=== PATIENT | female | born 1945 | race Caucasian/White ===

== ENCOUNTER 2018-07-18 17:37 | Outpatient (CLI) | payer MEDICARE, OTHER | END 2018-07-18 17:38 | disposition short-term general hospital (02) | LOC: EMS 17:37 | PROVIDERS: ATTEND Surgery | DX: R07.9 Chest pain, unspecified (principal) | CPT/HCPCS: A0425; A0433 ==

== ENCOUNTER 2018-07-28 17:11 | Outpatient (CLI) | payer MEDICARE, OTHER | END 2018-07-28 17:12 | disposition critical access hospital (66) | LOC: EMS 17:11 | PROVIDERS: ATTEND Surgery | DX: R53.1 Weakness (principal); R68.83 Chills (without fever) | CPT/HCPCS: A0425; A0429 ==

== ENCOUNTER 2018-07-28 17:33 | Emergency (ER) | payer MEDICARE, OTHER ==
[2018-07-28] MEDS ORDERED: MORPHINE 10 MG/ML VIAL IVP STA (18:45)
[2018-07-28] MEDS ORDERED: SODIUM CHLORIDE 0.9% 1,000 ML IV ONE ×2 (18:45→22:37)
[2018-07-28] MEDS ORDERED: ONDANSETRON 4 MG/2 ML VIAL IVP STA (18:46)
[2018-07-28 18:58] LABS: BASOPHILS % (AUTO) 0.2 %; HGB - HEMOGLOBIN 13.1 g/dL (12.0-16.0); LYMPHOCYTES # (AUTO) 1.6 10^3/uL (1.5-3.5); LYMPHOCYTES % (AUTO) 17.2 %; MEAN CORPUSCULAR HEMOGLOBIN 32.9 pg (27.0-31.0); MEAN CORPUSCULAR HGB CONC 33.8 g/dL (32.0-36.0); MEAN CORPUSCULAR VOLUME 97.1 fL (81.0-99.0); MEAN PLATELET VOLUME 8.9 fL (7.9-10.8); MONOCYTES # (AUTO) 0.3 10^3/uL (0.0-1.0); MONOCYTES % (AUTO) 3.1 %; NEUTROPHILS # (AUTO) 7.2 10^3/uL (1.5-6.6); NEUTROPHILS % (AUTO) 79.5 %; PLT - PLATELET COUNT 92 10^3/uL (130-450); RED BLOOD COUNT 3.97 10^6/uL (4.20-5.40); RED CELL DISTRIBUTION WIDTH 14.5 % (12.0-15.0)
--- NOTE | 2018-07-28 19:20 | XRAY Report ---
Reason: upper back/chest pain Procedure Date: 07/28/2018 Accession Number: [id number] / [id number] Procedure: XR - Chest 1 View X-Ray CPT Code: 90023 FULL RESULT: EXAM: CHEST RADIOGRAPHY EXAM DATE: 07/28/2018 06:56 PM. CLINICAL HISTORY: Upper back/chest pain. COMPARISON: Chest PA and lateral 10/14/2010. TECHNIQUE: 1 view. FINDINGS: Lungs/Pleura: No focal opacities evident. No pleural effusion. No pneumothorax. Mediastinum: Enlarged heart with atheromatous plaques in the thoracic aorta. Ectatic thoracic aorta. Other: Clips are noted in the right axillary region and chest wall. IMPRESSION: 1. No acute pulmonary process. 2. Cardiac enlargement. RADIA
[2018-07-28 19:30] LABS: PHOSPHORUS 3.5 mg/dL (2.5-4.6)
[2018-07-28 19:35] LABS: ALBUMIN 3.6 g/dL (3.2-5.5); ALBUMIN/GLOBULIN RATIO 1.2 (1.0-2.2); BILIRUBIN,TOTAL 0.9 mg/dL (0.2-1.0); CALCIUM 9.5 mg/dL (8.5-10.3); TOTAL PROTEIN 6.6 g/dL (6.7-8.2)
[2018-07-28] MEDS ORDERED: INSULIN REGULAR HUMAN 100 UNIT/1 ML 10 ML MDV IVP STA ×2 (19:38→20:40)
[2018-07-28] MEDS ORDERED: SODIUM BICARBONATE ABBOJECT 50 MEQ/50 ML SYRINGE IVP STA (19:38)
[2018-07-28] MEDS ORDERED: ALBUTEROL NEB 2.5 MG/3 ML INH STA ×2 (19:40→20:49)
[2018-07-28] MEDS ORDERED: SODIUM POLYSTYRENE SULFONATE 15 GM/60 ML BOTTLE PO STA ×2 (20:01→20:51)
--- NOTE | 2018-07-28 20:39 | ED Physician Documentation ---
PD HPI CHEST PAIN - Stated complaint Stated Complaint: WEAKNESS - Chief complaint Chief Complaint: General - History obtained from History obtained from: Patient, Family - History of Present Illness Timing - onset: Yesterday Timing - duration: Days (2) Timing - details: Gradual onset Quality: Tightness, Pain (Patient presents with a feeling of general malaise and nausea for the last 2 days. She also has persistent chest pain in the upper chest into her shoulders and back that she has had for about a week. She was seen initially for the chest pain but a week ago and was brought by EMS to [facility] and was treated there with evaluation for cardiac and pulmonary causes. She states she had x-rays and lab testing and a stress test and they did not find any cardiopulmonary cause of the pain. She was having nausea while there and was given IV dose of her tacrolimus antirejection medication that was reportedly higher dose than her normal. With that she had an elevation of her creatinine and potassium and was treated for that. She states she was feeling improved with a creatinine down to 1.9 and a potassium of 5.3 at the time of discharge on the . She is still had the persistent pain in the chest and back that did not have a diagnosis. She is now having nausea and general weakness in addition.) Location: Substernal, Left shoulder/arm Radiation: Back Associated symptoms: Nausea, Vomiting, General Weakness. No: Shortness of air, Diaphoresis, Palpitations Recently seen: Emergency Dept, Admitted ([facility] last week for chest pain and subsequent acute renal injury from medication and treated for hyperkalemia and renal insufficiency. No apparent diagnosis was found for the chest pain.) Review of Systems Constitutional: denies: Fever, Chills, Myalgias Nose: denies: Rhinorrhea / runny nose, Congestion Throat: denies: Sore throat Cardiac: reports: Chest pain / pressure. denies: Palpitations, Pedal edema, Calf pain Respiratory: denies: Dyspnea, Cough, Wheezing GI: reports: Nausea, Vomiting. denies: Abdominal Pain, Diarrhea Musculoskeletal: denies: Extremity swelling Neurologic: reports: Generalized weakness. 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, Other - Present Medications Home Medications: Ambulatory Orders Medication Instructions Recorded Confirmed Acetaminophen [Tylenol] 650 mg PO Q4-6H PRN 03/20/13 07/28/18 Aspirin [Aspir 81] 81 mg PO DAILY 03/20/13 07/28/18 Calcium Carbonate [Tums] 500 mg PO TID 03/20/13 07/28/18 Ergocalciferol (Vitamin D2) 5,000 unit PO QAM 03/20/13 07/28/18 [Calciferol] Insulin Aspart (Vial) [NovoLOG] 15 unit SUBQ TID 03/20/13 07/28/18 Insulin Glargine [Lantus] 20 unit SUBQ BID 03/20/13 07/28/18 Lactobacillus Acidophilus 50,000,000 units PO BID 03/20/13 07/28/18 [Acidophilus] Magnesium Oxide [Magnesium] 1,000 mg PO BID 03/20/13 07/28/18 Metoprolol Tartrate [Lopressor] 50 mg PO QAM 03/20/13 07/28/18 Morphine ER [Ms Contin] 15 mg PO Q12H 03/20/13 07/28/18 Multivit with Calcium,Iron,Min 1 each PO DAILY 03/20/13 07/28/18 [Essential Daily] Niacin 1,000 mg PO QPM 03/20/13 07/28/18 Nitrofurantoin Macrocrystal 50 mg PO QAM 03/20/13 07/28/18 [Macrodantin] [place]-3 Acid Ethyl Esters [Lovaza] 1,000 mg PO BID 03/20/13 07/28/18 Ondansetron Oral Soln [Zofran] 8 mg PO BID 03/20/13 07/28/18 Pravastatin Sodium [Pravachol] 20 mg PO QPM 03/20/13 07/28/18 Sertraline [Zoloft] 100 mg PO DAILY 03/20/13 07/28/18 Tacrolimus 2 mg PO BID 03/20/13 07/28/18 predniSONE [Deltasone] 5 mg PO QAM 03/20/13 07/28/18 - Allergies Allergies/Adverse Reactions: Allergies Allergy/AdvReac Type Severity Reaction Status Date / Time methadone [Methadone] Allergy Mild Hives Verified 05/01/13 16:41 propoxyphene Allergy Mild Rash Verified 05/01/13 16:39 verapamil [Verapamil] Allergy Mild Hives Verified 05/01/13 16:41 - Social History Does the pt smoke?: No Smoking Status: Never smoker Does the pt drink ETOH?: No Does the pt have substance abuse?: No - Family History Family history: reports: Non contributory - POLST Patient has POLST: No PD ED PE NORMAL - Vitals Vital signs reviewed: Yes - General General: Alert and oriented X 3 - HEENT HEENT: Pharynx benign. No: Moist mucous membranes - Neck Neck: Supple, no meningeal sign, No adenopathy - Cardiac Cardiac: RRR, No murmur - Respiratory Respiratory: Clear bilaterally - Abdomen Abdomen: Normal bowel sounds, Soft, Non tender, Non distended - Derm Derm: Normal color, Warm and dry - Extremities Extremities: Normal ROM s pain, Other (ulcerative lesion with skin thickening cw callous and ulcer on plantar left 1st MT head area without current infection. ) - Neuro Neuro: Alert and oriented X 3, No motor deficit, Normal speech Eye Opening: Spontaneous Motor: Obeys Commands Verbal: Confused GCS Score: 14 - Psych Psych: Normal mood Results - Vitals Vitals: Vital Signs - 24 hr 07/28/18 07/28/18 07/28/18 17:37 18:28 19:22 Temperature 36.6 C Heart Rate 72 68 72 Respiratory 18 16 15 Rate Blood Pressure 151/71 H 124/63 111/49 L O2 Saturation 97 99 96 07/28/18 07/28/18 07/28/18 19:30 19:40 21:03 Temperature Heart Rate 75 77 72 Respiratory 21 20 18 Rate Blood Pressure 124/66 119/50 L O2 Saturation 100 97 07/28/18 21:43 Temperature 36.7 C Heart Rate 86 Respiratory 18 Rate Blood Pressure 113/57 L O2 Saturation 94 Oxygen O2 Source Room air - EKG (time done) 19:44 Rate: Rate (enter#) (69) Rhythm: NSR Kirk: Normal Intervals: Normal [place] QRS: Normal Ischemia: Normal ST segments. No: ST elevation c/w ischemia, ST depression, Hyperacute T waves - Labs Labs: Laboratory Tests 07/28/18 07/28/18 07/28/18 18:04 18:04 18:04 WBC 9.0 RBC 3.97 L Hgb 13.1 Hct 38.6 MCV 97.1 MCH 32.9 H MCHC 33.8 RDW 14.5 Plt Count 92 L MPV 8.9 Neut # (Auto) 7.2 H Lymph # (Auto) 1.6 [place] # (Auto) 0.3 Eos # (Auto) 0.0 Baso # (Auto) 0.0 Absolute Nucleated RBC 0.00 Nucleated RBC % 0.0 Sodium 131 L Potassium 7.4 H* Chloride 99 L Carbon Dioxide 18 L Anion Gap 14.0 H BUN 66 H Creatinine 3.0 H Estimated GFR (MDRD) 15 L Glucose 382 H Calcium 9.5 Phosphorus 3.5 Magnesium 3.0 H Total Bilirubin 0.9 AST 30 ALT 17 Alkaline Phosphatase 69 Total Creatine Kinase 100 Troponin I Total Protein 6.6 L Albumin 3.6 Globulin 3.0 Albumin/Globulin Ratio 1.2 Lipase 27 07/28/18 07/28/18 18:04 20:08 WBC RBC Hgb Hct MCV MCH MCHC RDW Plt Count MPV Neut # (Auto) Lymph # (Auto) [place] # (Auto) Eos # (Auto) Baso # (Auto) Absolute Nucleated RBC Nucleated RBC % Sodium Potassium 6.6 H* Chloride Carbon Dioxide Anion Gap BUN Creatinine Estimated GFR (MDRD) Glucose Calcium Phosphorus Magnesium Total Bilirubin AST ALT Alkaline Phosphatase Total Creatine Kinase Troponin I 0.05 Total Protein Albumin Globulin Albumin/Globulin Ratio Lipase PD MEDICAL DECISION MAKING - ED course Complexity details: reviewed old records (From [facility].), reviewed results (She has worsening of her creatinine and electrolyte abnormalities compared to discharge from a few days ago. IV fluids as well as treatment for hyperkalemia acutely. [facility] did not have any beds available for transfer. 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 We will check her labs. The EKG appears normal at this time. She had already had evaluation for the chest pain so I will defer much workup for that. More so would be the nausea and weakness feeling over the last couple of days.), d/w patient, d/w application consultant (I talked with the hospitalist at [facility]. He would like us to continue treatment for the hyperkalemia and see that the trend downward continues so that they can choose the appropriate bed placement for her.) - Sepsis Event Vital Signs: Vital Signs - 24 hr 07/28/18 07/28/18 07/28/18 17:37 18:28 19:22 Temperature 36.6 C Heart Rate 72 68 72 Respiratory 18 16 15 Rate Blood Pressure 151/71 H 124/63 111/49 L O2 Saturation 97 99 96 07/28/18 07/28/18 07/28/18 19:30 19:40 21:03 Temperature Heart Rate 75 77 72 Respiratory 21 20 18 Rate Blood Pressure 124/66 119/50 L O2 Saturation 100 97 07/28/18 21:43 Temperature 36.7 C Heart Rate 86 Respiratory 18 Rate Blood Pressure 113/57 L O2 Saturation 94 Oxygen O2 Source Room air Departure - Departure Disposition: 02 Transfer Acute Care Hosp Clinical Impression: Generalized weakness, Acute on chronic renal insufficiency, Electrolyte disturbance Chest pain Qualifiers: Chest pain type: unspecified Qualified Code(s): R07.9 - Chest pain, unspecified Condition: Stable Record reviewed to determine appropriate education?: Yes
[2018-07-28] MEDS ORDERED: CALCIUM GLUCONATE 1,000 MG in SODIUM CHLORIDE 0.9% 50 ML IV STA (20:50)
[2018-07-28 22:34] LABS: CALCIUM 9.3 mg/dL (8.5-10.3); CREATININE 3.1 mg/dL (0.4-1.0)
[2018-07-28] MEDS ORDERED: FUROSEMIDE 20 MG/2 ML VIAL IVP STA (22:47)
[2018-07-29 00:29] VITALS: BP 105/72
== END 2018-07-29 00:45 | disposition short-term general hospital (02) ==
LOC: ED 17:33
DX: E11.22 Type 2 diabetes mellitus with diabetic chronic kidney disease (principal); N18.9 Chronic kidney disease, unspecified; Z94.0 Kidney transplant status; Z79.4 Long term (current) use of insulin; R53.1 Weakness; R07.9 Chest pain, unspecified; E87.5 Hyperkalemia; E87.8 Other disorders of electrolyte and fluid balance, not elsewhere classified; L97.529 Non-pressure chronic ulcer of other part of left foot with unspecified severity
CPT/HCPCS: 36415; 71045; 80048; 80053; 82550; 83690; 83735; 84100; 84132; 84484; 85025; 93005; 94640; 96361; 96365; 96375; 99285; A9270; J1815; J7040

== ENCOUNTER 2019-03-11 14:33 | Outpatient (CLI) | payer MEDICARE, OTHER | END 2019-03-11 14:34 | disposition critical access hospital (66) | LOC: EMS 14:33 | PROVIDERS: ATTEND Surgery | DX: R46.4 Slowness and poor responsiveness (principal); R41.3 Other amnesia | CPT/HCPCS: A0425; A0427 ==

== ENCOUNTER 2019-03-11 14:55 | Observation (INO) | payer MEDICARE, OTHER ==
[2019-03-11] MEDS ORDERED: DEXTROSE 5% 1,000 ML IV ONE (14:57)
--- NOTE | 2019-03-11 15:00 | ED Physician Documentation ---
PD HPI ALTERED MENTAL STATUS - Stated complaint Stated Complaint: HYPOGLYCEMIA - History obtained from History obtained from: Patient, EMS - History of Present Illness Timing - onset: Today (This is a 73 yo woman with H/O ESRD S/P renal xplant. Per EMS, per family, has some memory issues and may have mis-dosed insulin this morning. Usual dose would have been 30 units of lantus and 30 units of humalog. Had breakfast, but no lunch. Daughter found her sweaty and altered on the cough. For EMS FSBS was in the 40s. Feeling better after D50.) Basline status: Confused - Additional information Additional information: She does not remember much from this morning, does not remember self- administering insulin. Per the paramedics she kind of had insulin syringes all over the house and there is a concern that she may have gotten an extra dose or 2. Review of Systems Ten Systems: 10 systems reviewed and negative Constitutional: reports: Reviewed and negative Nose: reports: Reviewed and negative Cardiac: reports: Reviewed and negative Respiratory: reports: Reviewed and negative PD PAST MEDICAL HISTORY - Past Medical History Past Medical History: Yes Respiratory: Sleep apnea Endocrine/Autoimmune: Type 2 diabetes : Renal insuffiency (With kidney transplant about 8 years ago and is followed by [facility] neph[facility].), Other Psych: Depression Musculoskeletal: Chronic back pain - Past Surgical History Past Surgical History: Yes General: Appendectomy, 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, Other - Present Medications Home Medications: Ambulatory Orders Medication Instructions Recorded Confirmed Acetaminophen [Tylenol] 650 mg PO Q4-6H PRN 03/20/13 07/28/18 Aspirin [Aspir 81] 81 mg PO DAILY 03/20/13 07/28/18 Calcium Carbonate [Tums] 500 mg PO TID 03/20/13 07/28/18 Ergocalciferol (Vitamin D2) 5,000 unit PO QAM 03/20/13 07/28/18 [Calciferol] Insulin Aspart (Vial) [NovoLOG] 15 unit SUBQ TID 03/20/13 07/28/18 Insulin Glargine [Lantus] 20 unit SUBQ BID 03/20/13 07/28/18 Lactobacillus Acidophilus 50,000,000 units PO BID 03/20/13 07/28/18 [Acidophilus] Magnesium Oxide [Magnesium] 1,000 mg PO BID 03/20/13 07/28/18 Metoprolol Tartrate [Lopressor] 50 mg PO QAM 03/20/13 07/28/18 Morphine ER [Ms Contin] 15 mg PO Q12H 03/20/13 07/28/18 Multivit with Calcium,Iron,Min 1 each PO DAILY 03/20/13 07/28/18 [Essential Daily] Niacin 1,000 mg PO QPM 03/20/13 07/28/18 Nitrofurantoin Macrocrystal 50 mg PO QAM 03/20/13 07/28/18 [Macrodantin] [place]-3 Acid Ethyl Esters [Lovaza] 1,000 mg PO BID 03/20/13 07/28/18 Ondansetron Oral Soln [Zofran] 8 mg PO BID 03/20/13 07/28/18 Pravastatin Sodium [Pravachol] 20 mg PO QPM 03/20/13 07/28/18 Sertraline [Zoloft] 100 mg PO DAILY 03/20/13 07/28/18 Tacrolimus 2 mg PO BID 03/20/13 07/28/18 predniSONE [Deltasone] 5 mg PO QAM 03/20/13 07/28/18 - Allergies Allergies/Adverse Reactions: Allergies Allergy/AdvReac Type Severity Reaction Status Date / Time methadone [Methadone] Allergy Mild Hives Verified 05/01/13 16:41 propoxyphene Allergy Mild Rash Verified 05/01/13 16:39 verapamil [Verapamil] Allergy Mild Hives Verified 05/01/13 16:41 - Social History Does the pt smoke?: No Smoking Status: Never smoker Does the pt drink ETOH?: No Does the pt have substance abuse?: No - Family History Family history: reports: Non contributory - POLST Patient has POLST: No PD ED PE NORMAL - Vitals Vital signs reviewed: Yes - General General: No acute distress, Well developed/nourished - HEENT HEENT: PERRL, EOMI - Neck Neck: Supple, no meningeal sign, No bony TTP - Cardiac Cardiac: RRR, No murmur - Respiratory Respiratory: No respiratory distress, Clear bilaterally - Abdomen Abdomen: Normal bowel sounds, Soft, Non tender - Back Back: No CVA TTP, No spinal TTP - Extremities Extremities: No edema, No calf tenderness / cord - Neuro Neuro: Alert and oriented X 3 (but poor memory), Normal speech - Psych Psych: Normal mood, Normal affect Results - Vitals Vitals: Vital Signs - 24 hr 03/11/19 03/11/19 14:51 15:00 Temperature 35.6 C L 35.6 C L Heart Rate 76 76 Respiratory 16 16 Rate Blood Pressure 181/86 H 181/86 H O2 Saturation 100 100 Oxygen O2 Source Room air PD MEDICAL DECISION MAKING - ED course ED course: This is a 73-year-old woman who may have taken extra insulin this morning and she was definitely hypoglycemic and altered. Given that she does take long- acting insulin she will need prolonged observation to make sure she does not have recurrent hypoglycemia and I spoke with Dr. Cannon for that at 3:20 PM. Departure - Departure Disposition: ED Place in Observation Clinical Impression: Hypoglycemia Insulin overdose Qualifiers: Encounter type: initial encounter Injury intent: accidental or unintentional Qualified Code(s): T38.3X1A - Poisoning by insulin and oral hypoglycemic [antidiabetic] drugs, accidental (unintentional), initial encounter Condition: Fair
[2019-03-11] MEDS ORDERED: SODIUM CHLORIDE FLUSH 0.9% 10 ML SYRINGE IVP PRN (15:27)
[2019-03-11] MEDS ORDERED: PROCHLORPERAZINE 10 MG/2 ML VIAL IVP PRN (15:29)
[2019-03-11 15:41] LABS: ALBUMIN/GLOBULIN RATIO 0.9 (1.0-2.2); BILIRUBIN,TOTAL 0.7 mg/dL (0.2-1.0); CALCIUM 9.2 mg/dL (8.5-10.3); CREATININE 1.6 mg/dL (0.4-1.0); TOTAL PROTEIN 6.3 g/dL (6.7-8.2)
[2019-03-11] MEDS ORDERED: DEXTROSE 5%-0.9% NACL 1,000 ML IV SCH (16:00)
[2019-03-11 16:09] LABS: BASOPHILS % (AUTO) 0.3 %; EOSINOPHILS % (AUTO) 0.5 %; HGB - HEMOGLOBIN 12.3 g/dL (12.0-16.0); LYMPHOCYTES % (AUTO) 10.8 %; MEAN CORPUSCULAR HEMOGLOBIN 32.5 pg (27.0-31.0); MEAN CORPUSCULAR HGB CONC 33.2 g/dL (32.0-36.0); MEAN CORPUSCULAR VOLUME 98.1 fL (81.0-99.0); MEAN PLATELET VOLUME 7.6 fL (7.9-10.8); MONOCYTES % (AUTO) 8.3 %; NEUTROPHILS % (AUTO) 80.1 %; PLT - PLATELET COUNT 89 10^3/uL (130-450); RED BLOOD COUNT 3.78 10^6/uL (4.20-5.40); RED CELL DISTRIBUTION WIDTH 14.9 % (12.0-15.0); WHITE BLOOD COUNT 6.7 x10^3/uL (4.8-10.8)
[2019-03-11 16:10] LABS: ABNORMAL LYMPHS % (MANUAL) 0 %
[2019-03-11 16:33] LABS: BAND NEUTROPHILS % (MANUAL) 5 %; EOSINOPHILS # (MANUAL) 0.1 10^3/uL (0-0.7); HB2 TOTAL 12.7 g/dL; HEMOGLOBIN A1C 1.11 g/dL; HEMOGLOBIN A1C % 10.1 % (4.6-6.2); LYMPHOCYTES # (MANUAL) 0.8 10^3/uL (1.5-3.5); LYMPHOCYTES % (MANUAL) 11 %; MONOCYTES # (MANUAL) 0.1 10^3/uL (0.0-1.0); NEUTROPHILS # (MANUAL) 5.8 10^3/uL (1.5-6.6); NEUTROPHILS % (MANUAL) 81 %; RBC MORPHOLOGY (MULTIPLE) NORMAL APPEARANCE (NORMAL)
[2019-03-11 16:34] LABS: DIFFERENTIAL COMMENT MANUAL DIFFERENTIAL; PLATELET ESTIMATE, MANUAL DECREASED (<130,000) (NORMAL); PLATELET MORPHOLOGY NORMAL APPEARANCE (NORMAL)
[2019-03-11] MEDS: SODIUM CHLORIDE FLUSH 0.9% 10 ML SYRINGE IVP SCH (16:49)
[2019-03-11] MEDS: INSULIN ASPART 300 UNIT/3 ML PEN SUBQ SCH ×2 (16:49→21:38)
[2019-03-11] MEDS ORDERED: ZINC OXIDE 20% OINT 28.35 GM TUBE TOP PRN (18:40)
[2019-03-11] MEDS ORDERED: oxyCODONE 5 MG TABLET PO PRN (19:37)
[2019-03-11] MEDS ORDERED: PRAVASTATIN 10 MG TABLET PO SCH (21:00)
--- NOTE | 2019-03-11 21:33 | HISTORY & PHYSICAL EXAMINATION ---
DATE OF SERVICE: 03/11/2019 Physician: Irasema Cannon MD HISTORY OF PRESENT ILLNESS: This is a 73-year-old female with a history of obesity, insulin dependent diabetes, stroke 10 years ago, hypothyroidism on replacement, hypertension, kidney replacement recipient approximately 10 years ago. Patient lives alone, with 2 dogs, her 10 years ago. The patient has a set protocol where the daughter calls her every day between 9 a.m. and 10 a.m. This morning apparently the mother sounded confused, and the daughter came to find the mother confused, diaphoretic, and a fingerstick glucose was noted to be 40. She was brought to the emergency room. She received IV and p.o. glucose replacement. She is being monitored in observation to assure that there are no further glucose drops since she is on long-acting insulin treatment. The patient remembers that last night she did not take her evening snack despite taking her usual nighttime insulin and also this morning she ate her breakfast later than normal. The patient states that over the past several months, she gets early satiety and has decreased her overall food intake. She has been on the same insulin doses for many years, states that her A1c runs 6.8-7.2. There has not been a change in her insulin dosing downward because of this very tight control, however. PAST MEDICAL HISTORY: Hypothyroidism, insulin-dependent diabetes, prior kidney failure, and she had a successful kidney transplant approximately 10 years ago, is now on prednisone and tacrolimus, history of hypertension, stroke 10 years ago with mild right-sided weakness and following that she could not drive a car. ALLERGIES 1. METHADONE. 2. PROPOXYPHENE. 3. VERAPAMIL. REVIEW OF SYSTEMS: A comprehensive review of systems was performed and the pertinent positives are listed in the HPI, the rest are negative. FAMILY HISTORY: No inherited diseases. SOCIAL HISTORY: The patient is a nonsmoker, drinks no alcohol. She lives alone, is a of 10 years. PHYSICAL EXAMINATION GENERAL: Obese white female who looks younger than her stated age. She is in no distress. VITAL SIGNS: Blood pressure 168/135, 181/86, pulse 76 in sinus rhythm with PACs, afebrile, actually hypothermic with first temporal temperature of 35.6 centigrade, room air saturation 100%. HEENT: Unremarkable. She has moist oral mucosa. She is well kempt. NECK: Without JVD or carotid bruits. CHEST: Clear. HEART: Heart sounds normal. No murmurs. BREASTS: Large. ABDOMEN: Soft, obese, nontender. Normal bowel sounds. EXTREMITIES: She has 1+ edema of the left ankle. She has no edema on the right. Both have mild venous stasis changes. There is a healing scar of the right lateral ankle. NEUROLOGIC: Grossly intact. LABORATORY DATA: Sodium 139, potassium 3.9, BUN 31, creatinine 1.6. A1c 10.1. AST 57, ALT 38, lipase normal. No INR was done. White blood count 6.7, hemoglobin 12.3 with MCV of 98, platelet count low at 89 with decreased platelets that have normal appearance on manual differential. No chest x-ray was done. No urinalysis was done. IMPRESSION/DIAGNOSES 1. Hypoglycemia. 2. Insulin-dependent diabetes. 3. History of stroke with no residual findings. 4. Leg edema. 5. Hypothyroidism. 6. Kidney transplant recipient. 7. Renal insufficiency, unclear if this is acute or chronic. 8. Hypertension, poorly controlled. 9. Thrombocytopenia. PLAN 1. Place the patient in observation, on telemetry. 2. Administer an IV D5 drip for several hours, discontinue before the morning to assess her morning serum glucoses. 3. Recommend decreasing her long-acting insulin down by at least 2 units subcutaneous because of this hypoglycemic event. 4. Check a urinalysis and a routine chest x-ray. 5. Follow her BMP, renal labs, liver labs, and daily CBC. CODE STATUS: FULL CODE. DEEP VENOUS THROMBOSIS PROPHYLAXIS: SCDs. ATTESTATION: The patient is expected to be discharged or transferred to another facility within 96 hours: Yes. TD: 03/11/2019 20:14 REVISED ON 03/16/2019 adeola DOS correction to 03/11/2019 Orig. signed 03/12/2019@0912 TATI
[2019-03-11] MEDS: TACROLIMUS 0.5 MG CAPSULE PO SCH (21:37)
[2019-03-11] MEDS: METOPROLOL TARTRATE 50 MG TABLET PO SCH (21:37)
[2019-03-11] MEDS: predniSONE 5 MG TABLET PO SCH (21:37)
[2019-03-11] MEDS: CALCIUM CARBONATE CHEW 500 MG TABLET PO SCH (21:37)
[2019-03-11] MEDS: INSULIN GLARGINE 300 UNIT/3 ML PEN SUBQ SCH (21:38)
--- NOTE | 2019-03-11 22:27 | XRAY Report ---
Reason: Hypoglycemia, HTN Hx Procedure Date: 03/11/2019 Accession Number: [id number] / [id number] Procedure: XR - Chest 1 View X-Ray CPT Code: 31140 FULL RESULT: EXAM: CHEST RADIOGRAPHY EXAM DATE: 03/11/2019 08:30 PM. CLINICAL HISTORY: Hypoglycemia, HTN Hx. COMPARISON: CHEST 1 VIEW 07/28/2018 6:46 PM. TECHNIQUE: 1 view. FINDINGS: Lungs/Pleura: No focal opacities evident. No pleural effusion. No pneumothorax. Mediastinum: Within exam limitations, the cardiomediastinal contour is normal. Other: None. IMPRESSION: No acute infiltrates. RADIA
[2019-03-12] MEDS: SODIUM CHLORIDE FLUSH 0.9% 10 ML SYRINGE IVP SCH ×2 (00:17→09:02)
[2019-03-12 05:00] LABS: BILIRUBIN,URINE NEGATIVE (NEGATIVE); GLUCOSE, URINE (UA) NEGATIVE (NEGATIVE); KETONES,URINE (UA) NEGATIVE (NEGATIVE); LEUKOCYTE ESTERASE, URINE NEGATIVE (NEGATIVE); NITRITE,URINE NEGATIVE (NEGATIVE); OCCULT BLOOD,URINE NEGATIVE (NEGATIVE); PROTEIN,URINE 100 mg/dL (NEGATIVE); UROBILINOGEN,URINE 0.2 (NORMAL) E.U./dL (NORMAL)
[2019-03-12 05:03] LABS: CLARITY,URINE CLEAR (CLEAR)
[2019-03-12 05:19] LABS: BACTERIA,URINE None Seen /HPF (None Seen); RBC,URINE None Seen /HPF (0-5); SQUAMOUS EPITHELIAL CELL,UR FEW Squamous (<= Few)
[2019-03-12] MEDS: CALCIUM CARBONATE CHEW 500 MG TABLET PO SCH (05:44)
[2019-03-12 05:51] LABS: BASOPHILS % (AUTO) 0.3 %; EOSINOPHILS # (AUTO) 0.1 10^3/uL (0.0-0.7); EOSINOPHILS % (AUTO) 1.3 %; HGB - HEMOGLOBIN 11.5 g/dL (12.0-16.0); LYMPHOCYTES # (AUTO) 1.3 10^3/uL (1.5-3.5); LYMPHOCYTES % (AUTO) 23.5 %; MEAN CORPUSCULAR HEMOGLOBIN 32.4 pg (27.0-31.0); MEAN CORPUSCULAR HGB CONC 33.2 g/dL (32.0-36.0); MEAN CORPUSCULAR VOLUME 97.5 fL (81.0-99.0); MEAN PLATELET VOLUME 7.6 fL (7.9-10.8); MONOCYTES # (AUTO) 0.4 10^3/uL (0.0-1.0); NEUTROPHILS # (AUTO) 3.9 10^3/uL (1.5-6.6); NEUTROPHILS % (AUTO) 67.9 %; PLT - PLATELET COUNT 85 10^3/uL (130-450); RED BLOOD COUNT 3.55 10^6/uL (4.20-5.40); RED CELL DISTRIBUTION WIDTH 14.6 % (12.0-15.0); WHITE BLOOD COUNT 5.7 x10^3/uL (4.8-10.8)
[2019-03-12 06:00] LABS: ALBUMIN 2.6 g/dL (3.2-5.5); ALBUMIN/GLOBULIN RATIO 0.9 (1.0-2.2); BILIRUBIN,TOTAL 0.6 mg/dL (0.2-1.0); CREATININE 1.4 mg/dL (0.4-1.0); TOTAL PROTEIN 5.6 g/dL (6.7-8.2)
[2019-03-12] MEDS ORDERED: LEVOTHYROXINE 25 MCG TABLET PO SCH (07:00)
[2019-03-12] MEDS ORDERED: PANTOPRAZOLE 40 MG TABLET PO SCH (07:00)
[2019-03-12 07:41] VITALS: BP 144/90
[2019-03-12] MEDS: METOPROLOL TARTRATE 50 MG TABLET PO SCH (08:54)
[2019-03-12] MEDS: predniSONE 5 MG TABLET PO SCH (08:55)
[2019-03-12] MEDS: TACROLIMUS 0.5 MG CAPSULE PO SCH (08:56)
[2019-03-12] MEDS: INSULIN GLARGINE 300 UNIT/3 ML PEN SUBQ SCH (08:58)
[2019-03-12] MEDS ORDERED: MULTIVITAMIN W/MINERALS TABLET PO SCH (09:00)
[2019-03-12] MEDS ORDERED: FUROSEMIDE 20 MG TABLET PO SCH (09:00)
[2019-03-12] MEDS ORDERED: ASPIRIN EC 81 MG TABLET PO SCH (09:00)
[2019-03-12] MEDS ORDERED: POLYETHYLENE GLYCOL 3350 17 GM PACKET PO SCH (09:00)
[2019-03-12] MEDS ORDERED: SERTRALINE 50 MG TABLET PO SCH (09:00)
--- NOTE | 2019-03-12 09:02 | Discharge Plan ---
Discharge Plan Disposition: 01 Home, Self Care Condition: Stable Diet: Diabetic Activity Restrictions: Activity as Tolerated Shower Restrictions: No Instruction Topics: Hypoglycemia, Diabetes Low Blood Sugar Ch, Hypoglycemia Steps Additional Instructions or Follow Up instructions: You were treated for hypoglycemia. After reviewing your Insulin doses and your diet, I advise that your Insulin dose be decreased by 2 Units each time, to prevent another hypoglycemic attack. Please see your PCP for further management of your diet and Insulin management. Resume your other pre-hospital medications. If you have new or worsening symptoms, call your doctor or come to the ER. No Smoking: If you smoke, Please STOP! Call for help. Follow-up with: Ever Freeman MD [Primary Care Provider] -
[2019-03-12] MEDS ORDERED: CHOLECALCIFEROL 5,000 UNIT CAPSULE PO SCH (10:00)
[2019-03-12] MEDS: INSULIN ASPART 300 UNIT/3 ML PEN SUBQ SCH (10:03)
--- NOTE | 2019-03-12 15:24 | DISCHARGE SUMMARY ---
"Discharge Summary Admit Date: 03/11/19 Discharge Date: 03/12/19 Discharging Provider: Dr Irasema Cannon Primary Care Provider: Dr Ever Freeman Code Status: Attempt Resuscitation Condition at Discharge: Stable Discharge Disposition: 01 Home, Self Care - DIAGNOSES Admission Diagnoses: 1) Hypoglycemia 2) IDDM 3) Hx of CVA 4) Hypothyroidism 5) Kidney transplant recipient 7) HTN 8) SHAYY Discharge Diagnoses with Status of Each Condition: 1. Hypoglycemia - resolved and she was advised to decrease Insulin doses. She should also consider getting a Life Alert. 2. Insulin-dependent diabetes - A1c was 10.1 Further diet and medication adjustments advised to be done with PCP. 3. History of stroke - no residual findings. 4. Leg edema - minimal and stable 5. Hypothyroidism - the patient was kept on her same thyroid replacement dose. 6. Kidney transplant recipient - Her Tacrolimus was continued while here. 7. Renal insufficiency - her admission creat was 1.6. Previously it has been 3, here. At discharge it was 1.4, improved after 12 hours of iv hydration, presumably. 8. HTN - she was kept on her same BP meds whole here. 9. Thrombocytopenia - etiology unclear and needs outpatient evaluation. - HPI History of Present Illness: This is a 73-year-old white female with a history of hypertension, IDDM, prior stroke, hypothyroidism, hypertension, kidney transplant on immunosuppressant. Patient forgot to eat her evening snack the previous night, and ate her breakfast late, but took her usual Insulin doses, and the daughter called her at the daily 9 AM phone call and noticed that she was confused. The daughter came over and found her confused, diaphoretic and hypoglycemic with a fingerstick glucose of 40. In the ER she was treated with p.o. and IV glucose, and placed in Observation for assuring there were no more hypoglycemic events - CONSULTS | PROCEDURES Consultations: None - HOSPITAL COURSE Hospital Course: She was kept on IV D5 NS for approximately 9 hours. He was also on a carb controlled diet and had sliding scale insulin coverage. Her usual doses of long- acting insulin were decreased by 2 units and her morning glucoses ran in the 1 80-200 range. Her other medications were continued while she was here. She was discharged with recommendations to decrease her long-acting insulin by 2 units, and have further adjustments in her diabetic management by her PCP as well. - ALLERGIES Allergies/Adverse Reactions: Allergies Allergy/AdvReac Type Severity Reaction Status Date / Time methadone [Methadone] Allergy Mild Hives Verified 03/11/19 15:38 propoxyphene Allergy Mild Rash Verified 03/11/19 15:38 verapamil [Verapamil] Allergy Mild Hives Verified 03/11/19 15:38 - MEDICATIONS Home Medications: Ambulatory Orders Medication Instructions Recorded Confirmed Acetaminophen [Tylenol] 650 mg PO Q4-6H PRN 03/20/13 03/11/19 Aspirin [Aspir 81] 81 mg PO DAILY 03/20/13 03/11/19 Calcium Carbonate [Tums (Calcium 500 mg PO TID 03/20/13 03/11/19 Carbonate 500mg)] Insulin Glargine [Lantus] 30 unit SUBQ BID 03/20/13 03/11/19 Metoprolol Tartrate [Lopressor] 50 mg PO QAM 03/20/13 03/11/19 Multivit with Calcium,Iron,Min 1 each PO DAILY 03/20/13 03/11/19 [Essential Daily] [place]-3 Acid Ethyl Esters [Lovaza] 1,000 mg PO BID 03/20/13 03/11/19 Pravastatin Sodium [Pravachol] 20 mg PO QPM 03/20/13 03/11/19 Sertraline [Zoloft] 100 mg PO DAILY 03/20/13 03/11/19 Tacrolimus 2 mg PO BID 03/20/13 03/11/19 predniSONE [Deltasone] 5 mg PO QAM 03/20/13 03/11/19 Furosemide 20 mg PO DAILY 03/11/19 03/11/19 Levothyroxine [Synthroid] 25 mcg PO QDAC 03/11/19 03/11/19 Oxycodone HCl 10 mg PO BID PRN 03/11/19 03/11/19 Cholecalciferol [Vitamin D3] 5,000 unit PO DAILY 03/12/19 03/12/19 Insulin Aspart (Vial) [NovoLOG 13 unit SUBQ TID #0 03/12/19 03/11/19 (VIAL FOR ED USE)] - PHYSICAL EXAM AT DISCHARGE General Appearance: positive: No acute distress, Alert Eyes Bilateral: positive: Normal inspection ENT: positive: ENT inspection nml Neck: positive: Nml inspection, No JVD Respiratory: positive: No respiratory distress, Breath sounds nml Cardiovascular: positive: Regular rate & rhythm, No murmur Abdomen: positive: Non-tender, Other (Obese with a pannus) Extremities: positive: Other (ankle edema) Neurologic/Psychiatric: positive: Oriented x3 - LABS Result Diagrams: 03/12/19 05:31 03/12/19 05:31 - DIAGNOSTIC IMAGING Diagnostic Imaging Results: Final report reviewed Diagnostic Imaging Results Comments: CXR - unremarkable. - FOLLOW UP Follow Up: Advised to see Dr. Freeman in follow-up within a week. - TIME SPENT Time Spent in Discharge (Minutes): 30"
== END 2019-03-12 11:30 | disposition home or self-care (01) ==
LOC: ED 14:55 → MS2 15:27 → OBS 22:42
PROVIDERS: ADMIT Internal Medicine; ATTEND Internal Medicine
DX: E11.649 Type 2 diabetes mellitus with hypoglycemia without coma (principal); T38.3X5A Adverse effect of insulin and oral hypoglycemic [antidiabetic] drugs, initial encounter; Y92.009 Unspecified place in unspecified non-institutional (private) residence as the place of occurrence of the external cause; E03.9 Hypothyroidism, unspecified; I10 Essential (primary) hypertension; N17.9 Acute kidney failure, unspecified; R60.0 Localized edema; N28.9 Disorder of kidney and ureter, unspecified; D69.6 Thrombocytopenia, unspecified; E66.9 Obesity, unspecified; Z79.4 Long term (current) use of insulin; Z79.899 Other long term (current) drug therapy; Z94.0 Kidney transplant status; Z86.73 Personal history of transient ischemic attack (TIA), and cerebral infarction without residual deficits; Z79.82 Long term (current) use of aspirin; Z68.34 Body mass index [BMI] 34.0-34.9, adult; Z79.52 Long term (current) use of systemic steroids
CPT/HCPCS: 36415; 71045; 80053; 81001; 83036; 83690; 85025; 96361; 96365; 96366; 99283; 99284; A9270; G0378; J1815; J7512; 87086; 96360

== ENCOUNTER 2019-11-01 12:55 | Emergency (ER) | payer MEDICARE, OTHER, MEDICAID ==
[2019-11-01 13:07] VITALS: BP 137/67
--- NOTE | 2019-11-01 14:15 | ED Physician Documentation ---
History of Present Illness - Stated complaint Stated Complaint: HEAD WOUND - Chief complaint Chief Complaint: Wound - History obtained from History obtained from: Patient - History of Present Illness Timing: Today Pain level max: 0 Pain level now: 0 - Additonal information Additional information: 74-year-old female had a Mohs surgery for skin cancer off of her scalp. She states that she developed an abscess in the surgical site. This was incised and drained yesterday in the dermatology clinic. She states that she received a call from the expansion envelope maker hand today telling her to come to the emergency department and have the wound packed. There is no further drainage. She is on antibiotics at home. No fevers. 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: Hysterectomy, Other - Present Medications Home Medications: Ambulatory Orders Medication Instructions Recorded Confirmed Acetaminophen [Tylenol] 650 mg PO Q4-6H PRN 03/20/13 03/11/19 Aspirin [Aspir 81] 81 mg PO DAILY 03/20/13 03/11/19 Calcium Carbonate [Tums (Calcium 500 mg PO TID 03/20/13 03/11/19 Carbonate 500mg)] Insulin Glargine [Lantus] 30 unit SUBQ BID 03/20/13 03/11/19 Metoprolol Tartrate [Lopressor] 50 mg PO QAM 03/20/13 03/11/19 Multivit with Calcium,Iron,Min 1 each PO DAILY 03/20/13 03/11/19 [Essential Daily] [place]-3 Acid Ethyl Esters [Lovaza] 1,000 mg PO BID 03/20/13 03/11/19 Pravastatin Sodium [Pravachol] 20 mg PO QPM 03/20/13 03/11/19 Sertraline [Zoloft] 100 mg PO DAILY 03/20/13 03/11/19 Tacrolimus 2 mg PO BID 03/20/13 03/11/19 predniSONE [Deltasone] 5 mg PO QAM 03/20/13 03/11/19 Furosemide 20 mg PO DAILY 03/11/19 03/11/19 Levothyroxine [Synthroid] 25 mcg PO QDAC 03/11/19 03/11/19 Oxycodone HCl 10 mg PO BID PRN 03/11/19 03/11/19 Cholecalciferol [Vitamin D3] 5,000 unit PO DAILY 03/12/19 03/12/19 Insulin Aspart (Vial) [NovoLOG 13 unit SUBQ TID #0 03/12/19 03/11/19 (VIAL FOR ED USE)] - Allergies Allergies/Adverse Reactions: Allergies Allergy/AdvReac Type Severity Reaction Status Date / Time methadone [Methadone] Allergy Mild Hives Verified 11/01/19 13:07 propoxyphene Allergy Mild Rash Verified 11/01/19 13:07 verapamil [Verapamil] Allergy Mild Hives Verified 11/01/19 13:07 - Social History Does the pt smoke?: No Smoking Status: Never smoker Does the pt drink ETOH?: No Does the pt have substance abuse?: No - POLST Patient has POLST: No PD ED PE NORMAL - Vitals Vital signs reviewed: Yes - General General: Alert and oriented X 3, No acute distress, Well developed/nourished - HEENT HEENT: PERRL, Moist mucous membranes, Other (Well-healing surgical incision wound to the anterior scalp. No drainage. Minimal fluctuance.) - Neck Neck: Supple, no meningeal sign - Cardiac Cardiac: RRR, Strong equal pulses - Respiratory Respiratory: No respiratory distress, Clear bilaterally - Derm Derm: Warm and dry - Neuro Neuro: Alert and oriented X 3 - Psych Psych: Normal mood, Normal affect Results - Vitals Vitals: Vital Signs - 24 hr 11/01/19 13:03 Temperature 36.4 C L Heart Rate 62 Respiratory 18 Rate Blood Pressure 137/67 H O2 Saturation 98 Oxygen O2 Source Room air PD MEDICAL DECISION MAKING - ED course Complexity details: re-evaluated patient, considered differential, d/w patient, d/w marketing sales consultant (bibi) ED course: Discussed the case with dermatology on-call at the [facility] skin clinic. They will follow-up with her on Sunday. We will not re-incise the incision today. She will continue the antibiotics at home. Patient counseled regarding signs and symptoms for which I believe and urgent re-evaluation would be necessary. Patient with good understanding of and agreement to plan and is comfortable going home at this time This document was made in part using voice recognition software. While efforts are made to proofread this document, sound alike and grammatical errors may occur. Departure - Departure Disposition: Home, Self Care Clinical Impression: Encounter for wound re-check Condition: Good Instructions: ED Wound Care Follow-Up: Ashanti Fernando MD [Physician No Access] - Comments: Continue the antibiotics at home. Follow-up with dermatology on Sunday for repeat evaluation. If it reaccumulates during that time, they will re-incise and drain the area. Return if you worsen. Discharge Date/Time: 11/01/19 14:26
== END 2019-11-01 14:26 | disposition home or self-care (01) ==
LOC: ED 12:55
DX: Z48.01 Encounter for change or removal of surgical wound dressing (principal); G30.9 Alzheimer's disease, unspecified; F02.80 Dementia in other diseases classified elsewhere, unspecified severity, without behavioral disturbance, psychotic disturbance, mood disturbance, and anxiety; E11.9 Type 2 diabetes mellitus without complications; Z79.4 Long term (current) use of insulin
CPT/HCPCS: 99281; 99282

== ENCOUNTER 2020-01-13 19:14 | Outpatient (CLI) | payer MEDICARE, OTHER, MEDICAID | END 2020-01-13 19:15 | disposition critical access hospital (66) | LOC: EMS 19:14 | PROVIDERS: ATTEND Surgery | DX: R53.1 Weakness (principal); R06.9 Unspecified abnormalities of breathing; R05 Cough | CPT/HCPCS: A0425; A0429 ==

== ENCOUNTER 2020-01-13 19:33 | Inpatient (IN) | payer MEDICARE, OTHER, MEDICAID ==
[2020-01-13 21:13] LABS: BASOPHILS % (AUTO) 0.2 %; EOSINOPHILS % (AUTO) 0.3 %; HGB - HEMOGLOBIN 12.8 g/dL (12.0-16.0); LYMPHOCYTES # (AUTO) 0.7 10^3/uL (1.5-3.5); LYMPHOCYTES % (AUTO) 12.4 %; MEAN CORPUSCULAR HEMOGLOBIN 30.8 pg (27.0-31.0); MEAN CORPUSCULAR VOLUME 93.5 fL (81.0-99.0); MEAN PLATELET VOLUME 9.6 fL (7.9-10.8); MONOCYTES # (AUTO) 0.5 10^3/uL (0.0-1.0); MONOCYTES % (AUTO) 8.8 %; NEUTROPHILS # (AUTO) 4.4 10^3/uL (1.5-6.6); NEUTROPHILS % (AUTO) 76.1 %; PLT - PLATELET COUNT 111 10^3/uL (130-450); RED BLOOD COUNT 4.15 10^6/uL (4.20-5.40); RED CELL DISTRIBUTION WIDTH 15.4 % (12.0-15.0); WHITE BLOOD COUNT 5.8 x10^3/uL (4.8-10.8)
--- NOTE | 2020-01-13 21:15 | ED Physician Documentation ---
History of Present Illness - Stated complaint Stated Complaint: FLU LIKE SYMPTOMS - Chief complaint Chief Complaint: Abd Pain - History obtained from History obtained from: Patient (74-year-old female comes in today however via EMS per daughter's request for diarrhea. The patient lives at home by herself with her 2 large dogs blackbrun retriever & a mastiff, her daughter comes and checks on her daily, takes her out to lunch & does grocery shopping with her etc. The daughter came over to the house today and found the patient to be incontinent of liquid stool for the second day in a row, and the pt was unaware that she was soiled. The patient was placed on Augmentin approximately 3 - 4 days ago for an upper respiratory infection and a urinary tract infection. This was done by her PCP. The daughter states that the patient is unable to care for herself at home anymore given her current situation with her progressively worsening Alzheimer's disease. EMS was called and proceeded to bring her to the ER.) Review of Systems Constitutional: reports: Fatigue. denies: Fever, Chills Nose: reports: Reviewed and negative Throat: reports: Reviewed and negative Cardiac: reports: Reviewed and negative Respiratory: reports: Cough, Wheezing GI: reports: Diarrhea (Per EMS report, patient verbalized that she was unaware that she had diarrhea.). 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 : Renal insuffiency, Other (Right kidney transplant approximately 10 years ago) Psych: Depression Musculoskeletal: Chronic back pain Derm: None - Past Surgical History Past Surgical History: Yes General: Appendectomy, Other (Right kidney transplant.) /EXECUTIVE SECRETARY SOCIAL WELFARE: Hysterectomy, Other - Present Medications Home Medications: Ambulatory Orders Medication Instructions Recorded Confirmed Acetaminophen [Tylenol] 650 mg PO Q4-6H PRN 03/20/13 01/13/20 Aspirin [Aspir 81] 81 mg PO DAILY 03/20/13 01/13/20 Calcium Carbonate [Tums (Calcium 500 mg PO TID 03/20/13 01/13/20 Carbonate 500mg)] Insulin Glargine [Lantus] 30 unit SUBQ BID 03/20/13 01/13/20 Metoprolol Tartrate [Lopressor] 25 mg PO QAM 03/20/13 01/13/20 Multivit with Calcium,Iron,Min 1 each PO DAILY 03/20/13 01/13/20 [Essential Daily] [place]-3 Acid Ethyl Esters [Lovaza] 1,000 mg PO BID 03/20/13 03/11/19 Pravastatin Sodium [Pravachol] 20 mg PO QPM 03/20/13 01/13/20 Sertraline [Zoloft] 50 mg PO DAILY 03/20/13 01/13/20 Tacrolimus 2 mg PO BID 03/20/13 01/13/20 predniSONE [Deltasone] 5 mg PO QAM 03/20/13 01/13/20 Furosemide 20 mg PO BID 03/11/19 01/13/20 Levothyroxine [Synthroid] 25 mcg PO QDAC 03/11/19 01/13/20 Oxycodone HCl 10 mg PO BID PRN 03/11/19 01/13/20 Cholecalciferol [Vitamin D3] 5,000 unit PO DAILY 03/12/19 01/13/20 Insulin Aspart (Vial) [NovoLOG 13 unit SUBQ TID #0 03/12/19 01/13/20 (VIAL FOR ED USE)] - Allergies Allergies/Adverse Reactions: Allergies Allergy/AdvReac Type Severity Reaction Status Date / Time methadone [Methadone] Allergy Mild Hives Verified 11/01/19 13:07 propoxyphene Allergy Mild Rash Verified 11/01/19 13:07 verapamil [Verapamil] Allergy Mild Hives Verified 11/01/19 13:07 - Social History Does the pt smoke?: No Smoking Status: Never smoker Does the pt drink ETOH?: No Does the pt have substance abuse?: No - POLST Patient has POLST: No PD ED PE NORMAL - General General: No acute distress, Well developed/nourished - HEENT HEENT: Atraumatic, PERRL, Ears normal, Moist mucous membranes, Pharynx benign - Neck Neck: No adenopathy - Cardiac Cardiac: RRR, No murmur - Respiratory Respiratory: No respiratory distress - Abdomen Abdomen: Normal bowel sounds, Soft, Non tender, Non distended - Back Back: No CVA TTP - Psych Psych: Normal mood, Normal affect PD ED PE EXPANDED - Respiratory Respiratory: Rhonchi, Decreased breath sounds, Right lower lobe, Left lower lobe - Derm Derm: Bruising (Noted to the right back region flank area.Patient denies any knowledge of any trauma to this region.) Results - Vitals Vitals: Vital Signs - 24 hr 01/13/20 01/13/20 01/13/20 19:36 21:55 22:26 Temperature 36.4 C L 36.7 C Heart Rate 65 78 Respiratory 16 16 Rate Blood Pressure 110/46 L 97/65 O2 Saturation 100 98 Oxygen O2 Source Room air - Labs Labs: Laboratory Tests 01/13/20 01/13/20 21:08 21:08 WBC 5.8 RBC 4.15 L Hgb 12.8 Hct 38.8 MCV 93.5 MCH 30.8 MCHC 33.0 RDW 15.4 H Plt Count 111 L MPV 9.6 Neut # (Auto) 4.4 Lymph # (Auto) 0.[address] [place] # (Auto) 0.5 Eos # (Auto) 0.0 Baso # (Auto) 0.0 Absolute Nucleated RBC 0.00 Nucleated RBC % 0.0 Sodium 129 L Potassium 3.8 Chloride 94 L Carbon Dioxide 17 L Anion Gap 18.0 H BUN 107 H* Creatinine 3.3 H Estimated GFR (MDRD) 14 L Glucose 353 H Calcium 7.9 L PD MEDICAL DECISION MAKING - ED course Complexity details: reviewed old records, reviewed results, re-evaluated patient, considered differential - Consults Consults: Request sales consultant residential manager admit patient (Dr Jaimes hospitalist), Other (Dr Dunbar, line out worker is comfortable withe the pt being admitted at [facility] for rehydration and lab recheck in the a.m.) Departure - Departure Disposition: ED Place in Observation Clinical Impression: Acute kidney failure Qualifiers: Acute renal failure type: unspecified Qualified Code(s): N17.9 - Acute kidney failure, unspecified Condition: Fair Comments: I spoke with both the patient and the patient's daughter regarding patient's condition, and that she was going to be admitted to the hospital for observation over the night with rehydration and lab work done in the morning. Both the patient and the daughter verbalized understanding. Dr. Isidro was contacted and has agreed to accept the patient for admit.
[2020-01-13 21:53] LABS: CALCIUM 7.9 mg/dL (8.5-10.3); CREATININE 3.3 mg/dL (0.4-1.0)
--- NOTE | 2020-01-13 22:01 | XRAY Report ---
Reason: cough, congestion, fever, coarse lung sounds Procedure Date: 01/13/2020 Accession Number: [id number] / [id number] Procedure: XR - Chest 2 View X-Ray CPT Code: 81593 Final Report FULL RESULT: EXAM: CHEST RADIOGRAPHY EXAM DATE: 01/13/2020 09:50 PM. CLINICAL HISTORY: Cough, congestion, fever, coarse lung sounds. COMPARISON: CHEST 1 VIEW 03/11/2019 8:17 PM CHEST 1 VIEW 07/28/2018 6:46 PM. TECHNIQUE: 2 views. FINDINGS: Lungs/Pleura: New linear and small focal opacities in the right midlung and bilateral lower lungs. No dense consolidation. No large effusion or pneumothorax. No pulmonary edema. Mediastinum: Heart and mediastinal contours are unremarkable. Other: Right axillary surgical clips. IMPRESSION: New scattered linear and small focal opacities in the right mid and bilateral lower lungs, nonspecific, could reflect atelectasis or atypical infection. RADIA
[2020-01-13] MEDS ORDERED: SODIUM CHLORIDE FLUSH 0.9% 10 ML SYRINGE IVP PRN (22:48)
[2020-01-13] MEDS ORDERED: LACTATED RINGERS 1,000 ML IV ONE (22:53)
--- NOTE | 2020-01-13 23:10 | HISTORY & PHYSICAL EXAMINATION ---
Chief Complaint - Chief Complaint Chief Complaint: Diarrhea History of Present Illness - Admitted From Admitted From:: Home - History Obtained From Records Reviewed: Yes History obtained from: Patient, ER Provider, EMR Exam Limitations: Patient is confused and poor historian - History of Present Illness HPI Comment/Other: This is a 74-year-old female with a past medical history significant for insulin-dependent diabetes, hypothyroidism, hypertension, renal transplant, chronic kidney disease, obstructive sleep apnea on CPAP who presents today from home after her daughter found her to be incontinent of stool for the past couple of days and that the patient was also soiled without her realizing. Patient reports that she was diagnosed with a urinary tract infection about 3 to 4 days ago and she was started on Augmentin. She states that she had been doing well prior to this but over the past couple days, she has felt weak, tired and noticed that she has been having diarrhea. She states it is liquid in nature and she has been having a few bowel movements each day. It does not wake her up at night. She has not noticed any blood. She has no associated abdominal pain, nausea, vomiting. She reports no prior history of stool infections to her knowledge. She has no chest pain, dyspnea, fevers, chills, dysuria, urgency. She states she has had a little bit of a nonproductive cough. She was reportedly on Augmentin for an upper respiratory tract infection as well as the UTI. She reports she normally drinks 8 to 12 glasses of water a day but these past couple of days she has had decreased oral intake and she has not been feeling well. She does report feeling thirsty. She does have a history of a kidney transplant and prior records state this happened approximately 10 years ago but the patient tells me it may have been a few years ago. She does not know why she had a transplant. She currently believes it is the month of December. She is unable to tell me the year. She initially thought she was at the hospital in [place]. Her daughter told the ER provider that the patient has had difficulty taking care of herself at home given her worsening Alzheimer's. In the emergency department, she is found to be afebrile with temperature of 36.4 C. Her heart rate was 65. Her blood pressure was 110/46. She was not tachypneic and saturating well on room air. Labs reveal a sodium of 129, chloride of 94, bicarbonate of 17, and elevated anion gap at 18. Her BUN was elevated at 107 and her creatinine at 3.3, her baseline is usually around 1.5. Glucose was also elevated at 353. Given her acute renal failure and dehydration, medicine was consulted for admission. I did ask the emergency room provider to speak with her tankerman (Dr. Garvin) given her history of renal transplant. Provider spoke with the on-call tankerman (Dr. Dunbar) who felt it is appropriate for the patient to be admitted here. They recommended checking a Prograf level in the morning before resuming. Of note, I did discuss goals of care with the patient and she would like to be a full code. History - Past Medical History Cardiovascular: reports: Hypertension Respiratory: reports: Sleep apnea, CPAP use Neuro: reports: Alzhiemer's Endocrine/Autoimmune: reports: Type 2 diabetes GI: reports: None [employer]: reports: None : reports: Renal insuffiency, Other (Right kidney transplant approximately 10 years ago) Psych: reports: Depression Musculoskeletal: reports: Chronic back pain Derm: reports: None MRSA Hx?: No - Past Surgical History General: reports: Appendectomy, Other (Right kidney transplant.) /[employer]: reports: Hysterectomy, Other - Family & Social History Family History Comment/Other: She reports her mother had diabetes but she is not sure what she from home. She does not recall any other family history. Living arrangement: At home Living Situation: Alone Social History Notes: She states that she lives at home alone with her two dogs. She has a daughter, Christina who lives nearby. The patient denies ever smoking and denies alcohol use. She states she is independent with ADLs and ambulates on her own. - Substance History Use: Uses substance without health or social issues: NONE - POLST Patient has POLST: No Meds/Allgy - Home Medications Home Medications: Ambulatory Orders Medication Instructions Recorded Confirmed Acetaminophen [Tylenol] 650 mg PO Q4-6H PRN 03/20/13 01/13/20 Aspirin [Aspir 81] 81 mg PO DAILY 03/20/13 01/13/20 Calcium Carbonate [Tums (Calcium 500 mg PO TID 03/20/13 01/13/20 Carbonate 500mg)] Insulin Glargine [Lantus] 30 unit SUBQ BID 03/20/13 01/13/20 Metoprolol Tartrate [Lopressor] 25 mg PO QAM 03/20/13 01/13/20 Multivit with Calcium,Iron,Min 1 each PO DAILY 03/20/13 01/13/20 [Essential Daily] [place]-3 Acid Ethyl Esters [Lovaza] 1,000 mg PO BID 03/20/13 03/11/19 Pravastatin Sodium [Pravachol] 20 mg PO QPM 03/20/13 01/13/20 Sertraline [Zoloft] 50 mg PO DAILY 03/20/13 01/13/20 Tacrolimus 2 mg PO BID 03/20/13 01/13/20 predniSONE [Deltasone] 5 mg PO QAM 03/20/13 01/13/20 Furosemide 20 mg PO BID 03/11/19 01/13/20 Levothyroxine [Synthroid] 25 mcg PO QDAC 03/11/19 01/13/20 Oxycodone HCl 10 mg PO BID PRN 03/11/19 01/13/20 Cholecalciferol [Vitamin D3] 5,000 unit PO DAILY 03/12/19 01/13/20 Insulin Aspart (Vial) [NovoLOG 13 unit SUBQ TID #0 03/12/19 01/13/20 (VIAL FOR ED USE)] - Allergies Allergies/Adverse Reactions: Allergies Allergy/AdvReac Type Severity Reaction Status Date / Time methadone [Methadone] Allergy Mild Hives Verified 01/13/20 23:21 propoxyphene Allergy Mild Rash Verified 01/13/20 23:21 verapamil [Verapamil] Allergy Mild Hives Verified 01/13/20 23:21 Review of Systems - Constitutional Constitutional: reports: Fatigue, Malaise, Poor appetite. denies: Fever, Chills - Eyes Eyes: denies: Blurred vision - Ears, Nose & Throat Ears, Nose & Throat: reports: Sore throat. denies: Nasal congestion - Cardiovascular Cariovascular: denies: Chest pain, Exertional dyspnea, Decr. exercise tolerance - Respiratory Respiratory: reports: Cough. denies: Sputum production, SOB at rest, SOB with exertion - Gastrointestinal Gastrointestinal: reports: Diarrhea, Change in bowel habits. denies: Abdominal pain, Black stools, Bloody stools, Nausea, Vomiting - Genitourinary Genitourinary: denies: Dysuria, Frequency, Hematuria - Musculoskeletal Musculoskeletal: denies: Muscle pain - Integumentary Integumentary: denies: Rash - Neurological Neurological: reports: Memory problems. denies: General weakness, Focal weakness - All Other Systems All Other Systems: reports: Reviewed and negative Prior Level of Functionality: He lives alone and ambulates without any devices. Daughter has been concerned about progression of her dementia. Exam - Vital Signs Reviewed Vital Signs: Yes Vital Signs: Vital Signs x48h Temp Pulse Resp BP Pulse Ox 01/13/20 22:26 78 16 97/65 98 01/13/20 21:55 36.7 C 01/13/20 19:36 36.4 C L 65 16 110/46 L 100 - Physical Exam General Appearance: positive: No acute distress, Alert, Mild distress Eyes Bilateral: positive: Conjunctivae nml ENT: positive: Pharynx nml, Dry mucous membranes. negative: No signs of dehydration Neck: positive: Nml inspection Respiratory: positive: No respiratory distress, Rhonchi (Faint rhonchi noted in the right lower lobe). negative: Wheezes, Rales Cardiovascular: positive: Regular rate & rhythm, No murmur. negative: Tachycardia, Bradycardia, Systolic murmur, Friction rub Abdomen: positive: Non-tender, Nml bowel sounds, No distention. negative: Tenderness, Guarding, Rebound Skin: positive: No rash, Warm, Dry Extremities: positive: Full ROM, No pedal edema, Other (There is a fistula in the right upper extremity with a thrill present.) Neurologic/Psychiatric: positive: Disoriented to place, Disoriented to time, Other (She has no focal motor deficits and is able to move all 4 extremities. She initially believes she was at the hospital in [place]. She is unable to tell me the year and she believes it is December. She does know her date of and is able to name all 4 of her daughters.). negative: Oriented x3, Disoriented to person Conclusion/Plan - Problem List (1) Acute renal failure superimposed on stage 3 chronic kidney disease Conclusion/Plan: He presents with an elevated BUN of 107 and a creatinine of 3.3. Her baseline creatinine is approximately 1.5. Suspect this is likely prerenal injury given her dehydration from diarrhea and poor oral intake. We will hydrate her with IV lactated Ringer's. We will give her 1 L bolus now and start her on maintenance 800 cc an hour. We will obtain a urinalysis. At this point in time, there is not appear to be an indication for emergent dialysis. (2) Altered mental status Conclusion/Plan: She is altered at this time as she is disoriented to location, month, year. This may be progression of underlying dementia but given her elevated BUN, this could be altered mental status from uremia. She has no focal motor deficits on exam so will not be obtaining a CT of the head. I am hopeful that her mental status will improve with IV hydration as her renal function improves. Qualifiers: Altered mental status type: disorientation Qualified Code(s): R41.0 - Disorientation, unspecified (3) Diarrhea Conclusion/Plan: He does have risk factors for C. difficile including recent antibiotic use. The diarrhea may potentially as well be from her tacrolimus and she has had elevated levels in the past per chart review. At this time, we will hydrate her with IV fluids and check a C. difficile PCR. We will hold her tacrolimus for the time being and check a level now as well as in the morning. Diet as tolerated. Qualifiers: Diarrhea type: presumed infectious Qualified Code(s): R19.7 - Diarrhea, unspecified (4) Hyponatremia Conclusion/Plan: Sodium is still low at 133 when corrected for hyperglycemia. Suspect this is hypovolemic hyponatremia given she appears dry on exam. This should improve with IV hydration. (5) Insulin dependent diabetes mellitus Conclusion/Plan: She is on Lantus 30 units twice daily along with NovoLog 13 units with meals. She is currently hyperglycemic with a blood glucose of 353 although she did not take her insulin today. We will give her 30 units of her Lantus now and put her on her home dose of Lantus and NovoLog. Carb controlled diet. We will have the housekeeping cleaner evaluate her. (6) History of renal transplant Conclusion/Plan: Is a history of renal transplant over 10 years ago. She follows with Dr. Garvin. We will continue her home prednisone but hold her tacrolimus and to check a level today and in the morning. We will need to discuss with her tankerman again tomorrow when he would be appropriate to restart her tacrolimus given her acute kidney injury. (7) STEVEN on CPAP Conclusion/Plan: Stable. Continue CPAP therapy while hospitalized. (8) Hypertension Conclusion/Plan: She is on Lasix and metoprolol at home. Her blood pressure is currently within normal limits. We will hold her home diuretic given she is hypovolemic. We will continue to hydrate her with IV fluids. - Lab Results Lab results reviewed: Yes Derik Bones: 01/13/20 21:08 01/13/20 21:08 - Diagnostic Imaging Results Diagnostic Imaging Results: positive: Final report reviewed Core Measures - Anticipated LOS I expect patient to be DC'd or transferred within 96 hours.: Yes - Issues Hospital Issues and Management Plan: 74-year-old female presents with diarrhea and found to have acute renal failure. Will be admitted for IV hydration and infectious work-up including C. difficile - DVT/VTE - Prophylaxis VTE/DVT Device ordered at admit?: Yes VTE/DVT Prophylaxis med ordered at admit?: Yes
[2020-01-14] MEDS: LACTATED RINGERS 1,000 ML IV SCH ×3 (00:36→20:17)
[2020-01-14] MEDS: INSULIN GLARGINE 300 UNIT/3 ML PEN SUBQ SCH ×2 (01:31→08:10)
[2020-01-14] MEDS: MIN OIL/DIMETHICON/COCONUT OIL 92 GM TUBE TOP PRN ×4 (01:37→14:47)
[2020-01-14] MEDS: SODIUM CHLORIDE FLUSH 0.9% 10 ML SYRINGE IVP SCH ×3 (01:38→17:45)
[2020-01-14] MEDS: ACETAMINOPHEN 325 MG TABLET PO PRN ×2 (04:59→13:58)
[2020-01-14] MEDS: CALCIUM CARBONATE CHEW 500 MG TABLET PO SCH ×3 (05:04→21:12)
[2020-01-14 05:52] LABS: BASOPHILS % (AUTO) 0.2 %; EOSINOPHILS % (AUTO) 0.7 %; HGB - HEMOGLOBIN 11.6 g/dL (12.0-16.0); LYMPHOCYTES % (AUTO) 18.8 %; MEAN CORPUSCULAR HEMOGLOBIN 29.7 pg (27.0-31.0); MEAN CORPUSCULAR HGB CONC 32.3 g/dL (32.0-36.0); MEAN CORPUSCULAR VOLUME 92.1 fL (81.0-99.0); MEAN PLATELET VOLUME 9.8 fL (7.9-10.8); MONOCYTES # (AUTO) 0.7 10^3/uL (0.0-1.0); MONOCYTES % (AUTO) 12.8 %; NEUTROPHILS # (AUTO) 3.6 10^3/uL (1.5-6.6); NEUTROPHILS % (AUTO) 65.7 %; PLT - PLATELET COUNT 90 10^3/uL (130-450); RED CELL DISTRIBUTION WIDTH 15.1 % (12.0-15.0); WHITE BLOOD COUNT 5.5 x10^3/uL (4.8-10.8)
[2020-01-14 06:24] LABS: BILIRUBIN,DIRECT 0.1 mg/dL (0.1-0.5); BILIRUBIN,TOTAL 0.7 mg/dL (0.2-1.0); CREATININE 2.6 mg/dL (0.4-1.0); MAGNESIUM 2.3 mg/dL (1.7-2.8); PHOSPHORUS 5.7 mg/dL (2.5-4.6); TOTAL PROTEIN 5.8 g/dL (6.7-8.2)
[2020-01-14 06:25] LABS: ALBUMIN 2.4 g/dL (3.2-5.5)
[2020-01-14] MEDS: LEVOTHYROXINE 25 MCG TABLET PO SCH (06:48)
[2020-01-14] MEDS: CHOLECALCIFEROL 5,000 UNIT CAPSULE PO SCH (08:08)
[2020-01-14] MEDS: ASPIRIN CHEW 81 MG TABLET PO SCH ×2 (08:08→10:30)
[2020-01-14] MEDS: predniSONE 5 MG TABLET PO SCH (08:08)
[2020-01-14] MEDS: INSULIN ASPART 300 UNIT/3 ML PEN SUBQ SCH ×6 (08:09→20:35)
[2020-01-14] MEDS: SERTRALINE 50 MG TABLET PO SCH (08:11)
[2020-01-14] MEDS: HEPARIN 5,000 UNIT/ML VIAL SUBQ SCH ×3 (08:11→20:35)
[2020-01-14] MEDS ORDERED: oxyCODONE 5 MG TABLET PO PRN (08:21)
[2020-01-14] MEDS ORDERED: ASPIRIN EC 81 MG TABLET PO SCH (09:00)
[2020-01-14] MEDS ORDERED: CHOLECALCIFEROL 5,000 UNIT CAPSULE PO SCH (09:00)
[2020-01-14] MEDS ORDERED: SERTRALINE 50 MG TABLET PO SCH (09:00)
[2020-01-14] MEDS ORDERED: METOPROLOL TARTRATE 50 MG TABLET PO SCH (09:00)
--- NOTE | 2020-01-14 11:40 | PHARMACY PROGRESS NOTE ---
- Best Possible Medication History Admit Date and Time: 01/13/20 2248 Processed by: Nursing Medication History completed: Yes As the person ultimately responsible for medication therapy, providers are able to order a medication from an existing home medication list in [facility] via the "Reconcile Routine" prior to Confirmation of that medication by youth accommodation support worker. Such practice is discouraged except when the physician, in their clinical judgment, deems that a medical need exists for a medication without regard to previous use.
[2020-01-14 11:52] LABS: BILIRUBIN,URINE NEGATIVE (NEGATIVE); GLUCOSE, URINE (UA) NEGATIVE (NEGATIVE); KETONES,URINE (UA) NEGATIVE (NEGATIVE); LEUKOCYTE ESTERASE, URINE SMALL (NEGATIVE); NITRITE,URINE NEGATIVE (NEGATIVE); OCCULT BLOOD,URINE NEGATIVE (NEGATIVE); PROTEIN,URINE NEGATIVE (NEGATIVE); UROBILINOGEN,URINE 0.2 (NORMAL) E.U./dL (NORMAL)
[2020-01-14 11:58] LABS: BACTERIA,URINE Few /HPF (None Seen); CLARITY,URINE HAZY (CLEAR); RBC,URINE 0-5 /HPF (0-5); SQUAMOUS EPITHELIAL CELL,UR MOD Squamous (<= Few); YEAST,URINE PRESENT
[2020-01-14] MEDS: MULTIVITAMIN W/MINERALS TABLET PO SCH (12:22)
[2020-01-14] MEDS ORDERED: CALCIUM CARBONATE CHEW 500 MG TABLET PO SCH (14:00)
--- NOTE | 2020-01-14 14:46 | PROVIDER PROGRESS NOTE ---
Subjective - Prog Note Date Prog Note Date: 01/14/20 - Subjective Pt reports feeling: Improved Subjective: pt is alert and oriented to person, location but not time. she denies pain, fever, cough, shortness of breath. C.diff result is negative. Current Medications - Current Medications Current Medications: Active Medications Acetaminophen (Tylenol) 650 mg PO Q4HR PRN PRN Reason: Pain 1 to 4 Last Admin: 01/14/20 13:58 Dose: 650 mg Aspirin ([place]ir Aspirin) 81 mg PO DAILY [facility] Last Admin: 01/14/20 10:30 Dose: 81 mg Calcium Carbonate/Glycine (Tums) 500 mg PO TID [facility] Last Admin: 01/14/20 14:03 Dose: 500 mg Cholecalciferol (Vitamin D3) 5,000 unit PO DAILY [facility] Last Admin: 01/14/20 08:08 Dose: 5,000 unit Heparin Sodium (Porcine) () 5,000 unit SUBQ BID [facility] Last Admin: 01/14/20 10:28 Dose: 5,000 unit Lactated Ringer's (Lr) 1,000 mls @ 100 mls/hr IV .Q10H [facility] [place] Last Admin: 01/14/20 10:30 Dose: 100 mls/hr Insulin Aspart (Novolog) 1 - 5 unit SUBQ 0800,1200,1700,2100 [facility]; Protocol Last Admin: 01/14/20 11:35 Dose: 1 unit Insulin Aspart (Novolog) 13 unit SUBQ TIDWM [facility] Last Admin: 01/14/20 11:35 Dose: 13 unit Insulin Glargine (Lantus Solostar) 30 unit SUBQ BID [facility] Last Admin: 01/14/20 08:10 Dose: 30 unit Levothyroxine Sodium (Synthroid) 25 mcg PO QDAC [facility] Last Admin: 01/14/20 06:48 Dose: 25 mcg Metoprolol Tartrate (Lopressor) 25 mg PO QAM [facility] Mineral Oil (Cavilon) 1 applic TOP PRN PRN PRN Reason: Skin Care Last Admin: 01/14/20 14:47 Dose: 1 applic Multivitamins/Minerals (Theragran M) 1 tab PO 1200 [facility] Last Admin: 01/14/20 12:22 Dose: 1 tab Oxycodone HCl (Roxicodone) 10 mg PO BID PRN PRN Reason: PAIN Pravastatin Sodium (Pravachol) 20 mg PO QPM [facility] [place] Prednisone (Deltasone) 5 mg PO DAILYWM [facility] [place] Last Admin: 01/14/20 08:08 Dose: 5 mg Sertraline HCl (Zoloft) 50 mg PO DAILY [facility] [place] Last Admin: 01/14/20 08:11 Dose: 50 mg Sodium Chloride (Normal Saline Flush 0.9%) 10 ml IVP PRN PRN PRN Reason: NEEDED PER PROVIDER ORDERS Sodium Chloride (Normal Saline Flush 0.9%) 10 ml IVP 0100,0900,1700 [facility] [place] Last Admin: 01/14/20 08:11 Dose: Not Given Acetaminophen [Tylenol] 650 mg PO Q4-6H PRN 03/20/13 Aspirin [Aspir 81] 81 mg PO DAILY 03/20/13 Calcium Carbonate [Tums (Calcium Carbonate 500mg)] 500 mg PO TID 03/20/13 Insulin Glargine [Lantus] 30 unit SUBQ BID 03/20/13 Multivit with Calcium,Iron,Min [Essential Daily] 1 each PO DAILY 03/20/13 Pravastatin Sodium [Pravachol] 20 mg PO QPM 03/20/13 Sertraline [Zoloft] 50 mg PO DAILY 03/20/13 Tacrolimus 2 mg PO BID 03/20/13 predniSONE [Deltasone] 5 mg PO QAM 03/20/13 Furosemide 20 mg PO BID 03/11/19 Levothyroxine [Synthroid] 25 mcg PO QDAC 03/11/19 Oxycodone HCl 10 mg PO BID PRN 03/11/19 Cholecalciferol [Vitamin D3] 5,000 unit PO DAILY 03/12/19 Metoprolol Succinate 25 mg PO QPM 01/14/20 Objective - Vital Signs/Intake & Output Vital Signs: Vital Signs x48h Temp Pulse Resp BP Pulse Ox 01/14/20 12:57 36.4 C L 66 20 138/89 H 100 01/14/20 07:28 37 C 68 24 115/59 L 97 Intake & Output: Intake & Output 01/11/20 01/12/20 01/13/20 01/14/20 23:59 23:59 23:59 23:59 Intake Total 3170 Output Total 20 Balance 3150 - Objective General Appearance: positive: No acute distress, Alert. negative: Lethargic Eyes Bilateral: positive: Normal inspection, PERRL, No lid inflammation ENT: positive: ENT inspection nml, Pharynx nml, No signs of dehydration. negative: Purulent nasal drainage Neck: positive: Nml inspection, Thyroid nml, No JVD, Trachea midline. negative: Thyromegaly, Lymphadenopathy (R), Lymphadenopathy (L), Stiff neck, Tracheal deviation Respiratory: positive: Chest non-tender, No respiratory distress, Breath sounds nml. negative: Wheezes, Rales, Rhonchi Cardiovascular: positive: Regular rate & rhythm, No murmur, No gallop. negative: Irregularly irregular, Extrasystoles, Tachycardia, Bradycardia, JVD present, Systolic murmur, Diastolic murmur Peripheral Pulses: 2+ Radial (R), 2+ Radial (L) Abdomen: positive: Non-tender, No organomegaly, Nml bowel sounds, No distention. negative: Tenderness, Guarding, Rebound Back: positive: Nml inspection. negative: CVA tenderness (R), CVA tenderness (L) Skin: positive: Color nml, No rash, Warm, Dry. negative: Cyanosis, Diaphoresis, Pallor Extremities: positive: Non-tender, Nml appearance. negative: Calf tenderness, Jordana's sign/cords Neurologic/Psychiatric: positive: Motor nml, Sensation nml. negative: Weakness, Sensory loss, Facial droop, Slurred/abnml speech, Depressed mood/affect - Lab Results Fish Bones: 01/14/20 05:45 01/14/20 05:45 Other Labs: Lab Results x24hrs 01/14/20 01/14/20 01/14/20 Range/Units 11:30 05:45 05:45 WBC 5.5 (4.8-10.8) x10^3/uL RBC 3.90 L (4.20-5.40) 10^6/uL Hgb 11.6 L (12.0-16.0) g/dL Hct 35.9 L (37.0-47.0) % MCV 92.1 (81.0-99.0) fL MCH 29.7 (27.0-31.0) pg MCHC 32.3 (32.0-36.0) g/dL RDW 15.1 H (12.0-15.0) % Plt Count 90 L (130-450) 10^3/uL MPV 9.8 (7.9-10.8) fL Neut # (Auto) 3.6 (1.5-6.6) 10^3/uL Lymph # (Auto) 1.0 L (1.5-3.5) 10^3/uL [place] # (Auto) 0.7 (0.0-1.0) 10^3/uL Eos # (Auto) 0.0 (0.0-0.7) 10^3/uL Baso # (Auto) 0.0 (0.0-0.1) 10^3/uL Absolute Nucleated RBC 0.00 x10^3/uL Nucleated RBC % 0.0 /100WBC Sodium 132 L (135-145) mmol/L Potassium 3.6 (3.5-5.0) mmol/L Chloride 101 (101-111) mmol/L Carbon Dioxide 16 L (21-32) mmol/L Anion Gap 15.0 H (6-13) BUN 97 H* (6-20) mg/dL Creatinine 2.6 H (0.4-1.0) mg/dL Estimated GFR (MDRD) 18 L (>89) Glucose 289 H (70-100) mg/dL Lactic Acid (0.5-2.2) mmol/L Calcium 8.0 L (8.5-10.3) mg/dL Phosphorus 5.7 H (2.5-4.6) mg/dL Magnesium 2.3 (1.7-2.8) mg/dL Total Bilirubin 0.7 (0.2-1.0) mg/dL Direct Bilirubin 0.1 (0.1-0.5) mg/dL AST 12 (10-42) IU/L ALT 10 (10-60) IU/L Alkaline Phosphatase 48 (42-121) IU/L Total Protein 5.8 L (6.7-8.2) g/dL Albumin 2.4 L (3.2-5.5) g/dL Globulin 3.4 (2.1-4.2) g/dL Urine Color YELLOW Urine Clarity HAZY (CLEAR) Urine pH 6.0 (5.0-7.5) PH Ur Specific [place] 1.010 (1.002-1.030) Urine Protein NEGATIVE (NEGATIVE) mg/dL Urine Glucose (UA) NEGATIVE (NEGATIVE) mg/dL Urine Ketones NEGATIVE (NEGATIVE) mg/dL Urine Occult Blood NEGATIVE (NEGATIVE) Urine Nitrite NEGATIVE (NEGATIVE) Urine Bilirubin NEGATIVE (NEGATIVE) Urine Urobilinogen 0.2 (NORMAL) (NORMAL) E.U./dL Ur Leukocyte Esterase SMALL H (NEGATIVE) Urine RBC 0-5 (0-5) /HPF Urine WBC 11-25 H (0-5) /HPF Ur Squamous Epith Cells MOD Squamous H (<= Few) Urine Bacteria Few (None Seen) /HPF Urine Yeast PRESENT Ur Microscopic Review Cancelled Urine Culture Comments Cancelled 01/13/20 01/13/20 01/13/20 Range/Units 23:35 21:08 21:08 WBC 5.8 (4.8-10.8) x10^3/uL RBC 4.15 L (4.20-5.40) 10^6/uL Hgb 12.8 (12.0-16.0) g/dL Hct 38.8 (37.0-47.0) % MCV 93.5 (81.0-99.0) fL MCH 30.8 (27.0-31.0) pg MCHC 33.0 (32.0-36.0) g/dL RDW 15.4 H (12.0-15.0) % Plt Count 111 L (130-450) 10^3/uL MPV 9.6 (7.9-10.8) fL Neut # (Auto) 4.4 (1.5-6.6) 10^3/uL Lymph # (Auto) 0.7 L (1.5-3.5) 10^3/uL [place] # (Auto) 0.5 (0.0-1.0) 10^3/uL Eos # (Auto) 0.0 (0.0-0.7) 10^3/uL Baso # (Auto) 0.0 (0.0-0.1) 10^3/uL Absolute Nucleated RBC 0.00 x10^3/uL Nucleated RBC % 0.0 /100WBC Sodium 129 L (135-145) mmol/L Potassium 3.8 (3.5-5.0) mmol/L Chloride 94 L (101-111) mmol/L Carbon Dioxide 17 L (21-32) mmol/L Anion Gap 18.0 H (6-13) BUN 107 H* (6-20) mg/dL Creatinine 3.3 H (0.4-1.0) mg/dL Estimated GFR (MDRD) 14 L (>89) Glucose 353 H (70-100) mg/dL Lactic Acid 1.2 (0.5-2.2) mmol/L Calcium 7.9 L (8.5-10.3) mg/dL Phosphorus (2.5-4.6) mg/dL Magnesium (1.7-2.8) mg/dL Total Bilirubin (0.2-1.0) mg/dL Direct Bilirubin (0.1-0.5) mg/dL AST (10-42) IU/L ALT (10-60) IU/L Alkaline Phosphatase (42-121) IU/L Total Protein (6.7-8.2) g/dL Albumin (3.2-5.5) g/dL Globulin (2.1-4.2) g/dL Urine Color Urine Clarity (CLEAR) Urine pH (5.0-7.5) PH Ur Specific [place] (1.002-1.030) Urine Protein (NEGATIVE) mg/dL Urine Glucose (UA) (NEGATIVE) mg/dL Urine Ketones (NEGATIVE) mg/dL Urine Occult Blood (NEGATIVE) Urine Nitrite (NEGATIVE) Urine Bilirubin (NEGATIVE) Urine Urobilinogen (NORMAL) E.U./dL Ur Leukocyte Esterase (NEGATIVE) Urine RBC (0-5) /HPF Urine WBC (0-5) /HPF Ur Squamous Epith Cells (<= Few) Urine Bacteria (None Seen) /HPF Urine Yeast Ur Microscopic Review Urine Culture Comments ABX Reporting Has patient been on IV antibiotics over the past 48 hours?: No Assessment/Plan - Problem List (1) Acute renal failure superimposed on stage 3 chronic kidney disease Impression: 01/13 improved. pt's BUN is 97 from 107 on yesterday, creatinine is 2.6 from 3.3 on yesterday. pt has good appetite today continue IVF, and lab monitor (2) Altered mental status Conclusion/Plan: 01/13 improved. pt is alert and oriented two. pt did not present focal neurological deficit continue oriented to pt by staff, continue neuro check (3) Diarrhea Conclusion/Plan: 01/13 improved. C.diff test is negative. continue IVF, continue skin protection in anus area by staff. (4) Hyponatremia Conclusion/Plan: 01/13 improved. Na is 132 today from 129, continue IVF of NS, as renal function improved. (5) Insulin dependent diabetes mellitus Conclusion/Plan: 01/13 improved. glucose is 143 at morning. continue SS, lantus, ACHS, hypoglycemia protocol (6) History of renal transplant Conclusion/Plan: 01/13 continue Prednisone. tacrolimus concentration in serum is still pending in test, will resume after test (7) STEVEN on CPAP Conclusion/Plan: Stable. Continue CPAP therapy while hospitalized. (8) Hypertension stable, will resume home after reconcile
[2020-01-14] MEDS: PRAVASTATIN 40 MG TABLET PO SCH (20:36)
[2020-01-14] MEDS ORDERED: INSULIN GLARGINE 300 UNIT/3 ML PEN SUBQ SCH (21:00)
[2020-01-15] MEDS: SODIUM CHLORIDE FLUSH 0.9% 10 ML SYRINGE IVP SCH ×3 (01:25→17:47)
[2020-01-15] MEDS: ACETAMINOPHEN 325 MG TABLET PO PRN (05:13)
[2020-01-15 05:22] LABS: BASOPHILS % (AUTO) 0.2 %; EOSINOPHILS % (AUTO) 0.9 %; HGB - HEMOGLOBIN 11.2 g/dL (12.0-16.0); LYMPHOCYTES % (AUTO) 21.2 %; MEAN CORPUSCULAR HEMOGLOBIN 29.9 pg (27.0-31.0); MEAN CORPUSCULAR HGB CONC 32.4 g/dL (32.0-36.0); MEAN CORPUSCULAR VOLUME 92.5 fL (81.0-99.0); MEAN PLATELET VOLUME 9.5 fL (7.9-10.8); MONOCYTES # (AUTO) 0.5 10^3/uL (0.0-1.0); MONOCYTES % (AUTO) 10.1 %; NEUTROPHILS # (AUTO) 3.1 10^3/uL (1.5-6.6); NEUTROPHILS % (AUTO) 65.9 %; PLT - PLATELET COUNT 74 10^3/uL (130-450); RED BLOOD COUNT 3.74 10^6/uL (4.20-5.40); RED CELL DISTRIBUTION WIDTH 15.2 % (12.0-15.0); WHITE BLOOD COUNT 4.7 x10^3/uL (4.8-10.8)
[2020-01-15 05:37] LABS: CALCIUM 8.1 mg/dL (8.5-10.3); CREATININE 1.7 mg/dL (0.4-1.0); MAGNESIUM 2.2 mg/dL (1.7-2.8); PHOSPHORUS 3.8 mg/dL (2.5-4.6)
[2020-01-15] MEDS: LEVOTHYROXINE 25 MCG TABLET PO SCH (06:12)
[2020-01-15] MEDS: LACTATED RINGERS 1,000 ML IV SCH ×3 (06:12→20:47)
[2020-01-15] MEDS: CALCIUM CARBONATE CHEW 500 MG TABLET PO SCH ×3 (06:12→22:04)
[2020-01-15] MEDS ORDERED: LOPERAMIDE 2 MG CAPSULE PO PRN (07:00)
[2020-01-15] MEDS: SERTRALINE 50 MG TABLET PO SCH (08:06)
[2020-01-15] MEDS: METOPROLOL SUCCINATE 25 MG TABLET PO SCH (08:06)
[2020-01-15] MEDS: ASPIRIN CHEW 81 MG TABLET PO SCH (08:07)
[2020-01-15] MEDS: CHOLECALCIFEROL 5,000 UNIT CAPSULE PO SCH (08:07)
[2020-01-15] MEDS: predniSONE 5 MG TABLET PO SCH (08:07)
[2020-01-15] MEDS: HEPARIN 5,000 UNIT/ML VIAL SUBQ SCH ×2 (08:11→20:28)
[2020-01-15] MEDS: INSULIN ASPART 300 UNIT/3 ML PEN SUBQ SCH ×4 (08:21→20:53)
[2020-01-15] MEDS: INSULIN GLARGINE 300 UNIT/3 ML PEN SUBQ SCH ×2 (08:23→20:54)
--- NOTE | 2020-01-15 11:30 | PROVIDER PROGRESS NOTE ---
Subjective - Prog Note Date Prog Note Date: 01/15/20 - Subjective Pt reports feeling: Improved Subjective: pt report she feel better, and she is comfortably sitting at the edge of the bed. she ate most of her breakfast. she denies fever, chill, cough, shortness of breath, chest pain. I called pt's associate professor of medicine, DR. Feliz to discuss if resume pt's home meds Tacrolimus. recommended we can resume her tacrolimus now and advise pt followup him on next week or next Sunday. Current Medications - Current Medications Current Medications: Active Medications Acetaminophen (Tylenol) 650 mg PO Q4HR PRN PRN Reason: Pain 1 to 4 Last Admin: 01/15/20 05:13 Dose: 650 mg Aspirin (St Nasir Aspirin) 81 mg PO DAILY [facility] Last Admin: 01/15/20 08:07 Dose: 81 mg Calcium Carbonate/Glycine (Tums) 500 mg PO TID [facility] Last Admin: 01/15/20 06:12 Dose: 500 mg Cholecalciferol (Vitamin D3) 5,000 unit PO DAILY [facility] Last Admin: 01/15/20 08:07 Dose: 5,000 unit Heparin Sodium (Porcine) () 5,000 unit SUBQ BID [facility] Last Admin: 01/15/20 08:11 Dose: 5,000 unit Lactated Ringer's (Lr) 1,000 mls @ 100 mls/hr IV .Q10H [facility] Stop: 01/16/20 07:59 Insulin Aspart (Novolog) 1 - 9 unit SUBQ 0800,1200,1700,2100 [facility]; Protocol Last Admin: 01/15/20 08:21 Dose: 1 unit Insulin Glargine (Lantus Solostar) 30 unit SUBQ BID [facility] Last Admin: 01/15/20 08:23 Dose: 30 unit Levothyroxine Sodium (Synthroid) 25 mcg PO QDAC [facility] Last Admin: 01/15/20 06:12 Dose: 25 mcg Loperamide HCl (Imodium) 2 mg PO QID PRN PRN Reason: Diarrhea Metoprolol Succinate (Toprol Xl) 25 mg PO DAILY [facility] Last Admin: 01/15/20 08:06 Dose: 25 mg Metoprolol Succinate (Toprol Xl) 25 mg PO QPM [facility] Mineral Oil (Cavilon) 1 applic TOP PRN PRN PRN Reason: Skin Care Last Admin: 01/14/20 14:47 Dose: 1 applic Multivitamins/Minerals (Theragran M) 1 tab PO 1200 [facility] Last Admin: 01/14/20 12:22 Dose: 1 tab Oxycodone HCl (Roxicodone) 10 mg PO BID PRN PRN Reason: PAIN Last Admin: 01/15/20 06:12 Dose: 10 mg Pravastatin Sodium (Pravachol) 20 mg PO QPM [facility] Last Admin: 01/14/20 20:36 Dose: 20 mg Prednisone (Deltasone) 5 mg PO DAILYWM [facility] Last Admin: 01/15/20 08:07 Dose: 5 mg Saccharomyces Boulardii (Florastor) 250 mg PO BIDWM [facility] Sertraline HCl (Zoloft) 50 mg PO DAILY [facility] Last Admin: 01/15/20 08:06 Dose: 50 mg Sodium Chloride (Normal Saline Flush 0.9%) 10 ml IVP PRN PRN PRN Reason: NEEDED PER PROVIDER ORDERS Sodium Chloride (Normal Saline Flush 0.9%) 10 ml IVP 0100,0900,1700 [facility] Last Admin: 01/15/20 01:25 Dose: Not Given Tacrolimus (Prograf) 2 mg PO BID [facility] Acetaminophen [Tylenol] 650 mg PO Q4-6H PRN 03/20/13 Aspirin [Aspir 81] 81 mg PO DAILY 03/20/13 Calcium Carbonate [Tums (Calcium Carbonate 500mg)] 500 mg PO TID 03/20/13 Insulin Glargine [Lantus] 30 unit SUBQ BID 03/20/13 Multivit with Calcium,Iron,Min [Essential Daily] 1 each PO DAILY 03/20/13 Pravastatin Sodium [Pravachol] 20 mg PO QPM 03/20/13 Sertraline [Zoloft] 50 mg PO DAILY 03/20/13 Tacrolimus 2 mg PO BID 03/20/13 predniSONE [Deltasone] 5 mg PO QAM 03/20/13 Furosemide 20 mg PO BID 03/11/19 Levothyroxine [Synthroid] 25 mcg PO QDAC 03/11/19 Oxycodone HCl 10 mg PO BID PRN 03/11/19 Cholecalciferol [Vitamin D3] 5,000 unit PO DAILY 03/12/19 Metoprolol Succinate 25 mg PO QPM 01/14/20 Objective - Vital Signs/Intake & Output Vital Signs: Vital Signs x48h Temp Pulse Resp BP Pulse Ox 01/15/20 08:07 36.8 C 65 18 132/59 H 98 01/15/20 05:00 36.8 C 72 20 161/69 H 98 Intake & Output: Intake & Output 01/12/20 01/13/20 01/14/20 01/15/20 23:59 23:59 23:59 23:59 Intake Total 4420.000 1880 Output Total 20 700 Balance 4400.000 1180 - Objective General Appearance: positive: No acute distress, Alert. negative: Lethargic Eyes Bilateral: positive: Normal inspection, PERRL, No lid inflammation ENT: positive: ENT inspection nml, Pharynx nml, No signs of dehydration. negative: Purulent nasal drainage Neck: positive: Nml inspection, Thyroid nml, No JVD, Trachea midline. negative: Thyromegaly, Lymphadenopathy (R), Lymphadenopathy (L), Stiff neck, Tracheal deviation Respiratory: positive: Chest non-tender, No respiratory distress. negative: Wheezes, Rales, Rhonchi Cardiovascular: positive: Regular rate & rhythm, No murmur, No gallop. negative: Irregularly irregular, Extrasystoles, Tachycardia, Bradycardia, JVD present, Systolic murmur, Diastolic murmur Peripheral Pulses: 2+ Radial (R), 2+ Radial (L), 2+ Dorsalis pedis (R), 2+ Dorsalis pedis (L) Abdomen: positive: Non-tender, No organomegaly, Nml bowel sounds, No distention. negative: Tenderness, Guarding, Rebound Back: positive: Nml inspection. negative: CVA tenderness (R), CVA tenderness (L) Skin: positive: Color nml, No rash, Warm, Dry. negative: Cyanosis, Diaphoresis, Pallor Extremities: positive: Non-tender, Full ROM, Nml appearance. negative: Calf tenderness, Jordana's sign/cords Neurologic/Psychiatric: positive: Motor nml, Sensation nml, Mood/affect nml. negative: Weakness, Sensory loss, Facial droop, Slurred/abnml speech - Lab Results Fish Bones: 01/15/20 04:50 01/15/20 04:50 Other Labs: Lab Results x24hrs 01/15/20 01/15/20 01/15/20 Range/Units 04:50 04:50 04:50 WBC 4.7 L (4.8-10.8) x10^3/uL RBC 3.74 L (4.20-5.40) 10^6/uL Hgb 11.2 L (12.0-16.0) g/dL Hct 34.6 L (37.0-47.0) % MCV 92.5 (81.0-99.0) fL MCH 29.9 (27.0-31.0) pg MCHC 32.4 (32.0-36.0) g/dL RDW 15.2 H (12.0-15.0) % Plt Count 74 L (130-450) 10^3/uL MPV 9.5 (7.9-10.8) fL Neut # (Auto) 3.1 (1.5-6.6) 10^3/uL Lymph # (Auto) 1.0 L (1.5-3.5) 10^3/uL [place] # (Auto) 0.5 (0.0-1.0) 10^3/uL Eos # (Auto) 0.0 (0.0-0.7) 10^3/uL Baso # (Auto) 0.0 (0.0-0.1) 10^3/uL Absolute Nucleated RBC 0.00 x10^3/uL Nucleated RBC % 0.0 /100WBC Sodium 134 L (135-145) mmol/L Potassium 3.5 (3.5-5.0) mmol/L Chloride 105 (101-111) mmol/L Carbon Dioxide 20 L (21-32) mmol/L Anion Gap 9.0 (6-13) BUN 83 H* (6-20) mg/dL Creatinine 1.7 H (0.4-1.0) mg/dL Estimated GFR (MDRD) 30 L (>89) Glucose 197 H (70-100) mg/dL Calcium 8.1 L (8.5-10.3) mg/dL Phosphorus 3.8 (2.5-4.6) mg/dL Magnesium 2.2 (1.7-2.8) mg/dL TSH 2.82 (0.34-5.60) uIU/mL Urine Color Urine Clarity (CLEAR) Urine pH (5.0-7.5) PH Ur Specific [place] (1.002-1.030) Urine Protein (NEGATIVE) mg/dL Urine Glucose (UA) (NEGATIVE) mg/dL Urine Ketones (NEGATIVE) mg/dL Urine Occult Blood (NEGATIVE) Urine Nitrite (NEGATIVE) Urine Bilirubin (NEGATIVE) Urine Urobilinogen (NORMAL) E.U./dL Ur Leukocyte Esterase (NEGATIVE) Urine RBC (0-5) /HPF Urine WBC (0-5) /HPF Ur Squamous Epith Cells (<= Few) Urine Bacteria (None Seen) /HPF Urine Yeast Ur Microscopic Review Urine Culture Comments Stl C. diff Tox B Gene (NEGATIVE) 01/14/20 01/14/20 Range/Units 12:00 11:30 WBC (4.8-10.8) x10^3/uL RBC (4.20-5.40) 10^6/uL Hgb (12.0-16.0) g/dL Hct (37.0-47.0) % MCV (81.0-99.0) fL MCH (27.0-31.0) pg MCHC (32.0-36.0) g/dL RDW (12.0-15.0) % Plt Count (130-450) 10^3/uL MPV (7.9-10.8) fL Neut # (Auto) (1.5-6.6) 10^3/uL Lymph # (Auto) (1.5-3.5) 10^3/uL [place] # (Auto) (0.0-1.0) 10^3/uL Eos # (Auto) (0.0-0.7) 10^3/uL Baso # (Auto) (0.0-0.1) 10^3/uL Absolute Nucleated RBC x10^3/uL Nucleated RBC % /100WBC Sodium (135-145) mmol/L Potassium (3.5-5.0) mmol/L Chloride (101-111) mmol/L Carbon Dioxide (21-32) mmol/L Anion Gap (6-13) BUN (6-20) mg/dL Creatinine (0.4-1.0) mg/dL Estimated GFR (MDRD) (>89) Glucose (70-100) mg/dL Calcium (8.5-10.3) mg/dL Phosphorus (2.5-4.6) mg/dL Magnesium (1.7-2.8) mg/dL TSH (0.34-5.60) uIU/mL Urine Color YELLOW Urine Clarity HAZY (CLEAR) Urine pH 6.0 (5.0-7.5) PH Ur Specific [place] 1.010 (1.002-1.030) Urine Protein NEGATIVE (NEGATIVE) mg/dL Urine Glucose (UA) NEGATIVE (NEGATIVE) mg/dL Urine Ketones NEGATIVE (NEGATIVE) mg/dL Urine Occult Blood NEGATIVE (NEGATIVE) Urine Nitrite NEGATIVE (NEGATIVE) Urine Bilirubin NEGATIVE (NEGATIVE) Urine Urobilinogen 0.2 (NORMAL) (NORMAL) E.U./dL Ur Leukocyte Esterase SMALL H (NEGATIVE) Urine RBC 0-5 (0-5) /HPF Urine WBC 11-25 H (0-5) /HPF Ur Squamous Epith Cells MOD Squamous H (<= Few) Urine Bacteria Few (None Seen) /HPF Urine Yeast PRESENT Ur Microscopic Review Cancelled Urine Culture Comments Cancelled Stl C. diff Tox B Gene NEGATIVE (NEGATIVE) ABX Reporting Has patient been on IV antibiotics over the past 48 hours?: No Sepsis Event Note (H) - Evaluation Current Stage of Sepsis: Ruled out Assessment/Plan - Problem List (1) Acute renal failure superimposed on stage 3 chronic kidney disease Impression: 01/14 improved. Bun 83 and creatinine 1.7 on today. pt has good appetite as well continue IVF, but precaution of fluid overloaded continue lab monitor 01/13 improved. pt's BUN is 97 from 107 on yesterday, creatinine is 2.6 from 3.3 on yesterday. pt has good appetite today continue IVF, and lab monitor (2) Altered mental status Conclusion/Plan: 01/14 improved. pt state she feel better, she is alert and oriented to self, location. 01/13 improved. pt is alert and oriented two. pt did not present focal neurological deficit continue oriented to pt by staff, continue neuro check (3) Diarrhea Conclusion/Plan: 01/14 pt has some diarrhea on last night. C.diff was negative. Imodium PRN 01/13 improved. C.diff test is negative. continue IVF, continue skin protection in anus area by staff. (4) Hyponatremia Conclusion/Plan: 01/14 improved. Na is 134 today, continue hydration with IV of NS, continue lab monitor 01/13 improved. Na is 132 today from 129, continue IVF of NS, as renal function improved. (5) Insulin dependent diabetes mellitus Conclusion/Plan: 01/14 resume home lantus 30 units bid, continue SS, lantus, ACHS, hypoglycemia protocol 01/13 improved. glucose is 143 at morning. continue SS, lantus, ACHS, hypoglycemia protocol (6) History of renal transplant Conclusion/Plan: 01/14. called Dr. Feliz, pt's associate professor of medicine, he recommend we resume her home Tacrolimus, we resumed for pt, continue Prednisone. 01/13 continue Prednisone. tacrolimus concentration in serum is still pending in test, will resume after test (7) STEVEN on CPAP Conclusion/Plan: Stable. Continue CPAP therapy while hospitalized. (8) Hypertension stable, will resume home after reconcile
[2020-01-15] MEDS: MULTIVITAMIN W/MINERALS TABLET PO SCH (12:05)
[2020-01-15] MEDS: SACCHAROMYCES BOULARDII 250 MG CAPSULE PO SCH ×2 (12:05→17:42)
[2020-01-15] MEDS: TACROLIMUS 0.5 MG CAPSULE PO SCH (20:46)
[2020-01-15] MEDS: PRAVASTATIN 40 MG TABLET PO SCH (20:47)
[2020-01-15] MEDS ORDERED: METOPROLOL SUCCINATE 25 MG TABLET PO SCH (21:00)
[2020-01-16] MEDS: SODIUM CHLORIDE FLUSH 0.9% 10 ML SYRINGE IVP SCH ×2 (00:34→08:31)
[2020-01-16 05:23] LABS: BASOPHILS % (AUTO) 0.4 %; EOSINOPHILS # (AUTO) 0.1 10^3/uL (0.0-0.7); EOSINOPHILS % (AUTO) 1.4 %; HGB - HEMOGLOBIN 10.5 g/dL (12.0-16.0); LYMPHOCYTES % (AUTO) 20.2 %; MEAN CORPUSCULAR HEMOGLOBIN 30.1 pg (27.0-31.0); MEAN CORPUSCULAR HGB CONC 32.2 g/dL (32.0-36.0); MEAN CORPUSCULAR VOLUME 93.4 fL (81.0-99.0); MEAN PLATELET VOLUME 9.6 fL (7.9-10.8); MONOCYTES # (AUTO) 0.4 10^3/uL (0.0-1.0); MONOCYTES % (AUTO) 8.2 %; NEUTROPHILS # (AUTO) 3.4 10^3/uL (1.5-6.6); NEUTROPHILS % (AUTO) 68.4 %; PLT - PLATELET COUNT 63 10^3/uL (130-450); RED BLOOD COUNT 3.49 10^6/uL (4.20-5.40); WHITE BLOOD COUNT 4.9 x10^3/uL (4.8-10.8)
[2020-01-16 05:35] LABS: CALCIUM 8.1 mg/dL (8.5-10.3); CREATININE 1.3 mg/dL (0.4-1.0); MAGNESIUM 1.9 mg/dL (1.7-2.8); PHOSPHORUS 2.2 mg/dL (2.5-4.6)
[2020-01-16] MEDS: LEVOTHYROXINE 25 MCG TABLET PO SCH (06:20)
[2020-01-16] MEDS: CALCIUM CARBONATE CHEW 500 MG TABLET PO SCH (06:20)
[2020-01-16 08:23] VITALS: BP 144/56
[2020-01-16] MEDS: INSULIN ASPART 300 UNIT/3 ML PEN SUBQ SCH (08:26)
[2020-01-16] MEDS: METOPROLOL SUCCINATE 25 MG TABLET PO SCH (08:28)
[2020-01-16] MEDS: INSULIN GLARGINE 300 UNIT/3 ML PEN SUBQ SCH (08:28)
[2020-01-16] MEDS: TACROLIMUS 0.5 MG CAPSULE PO SCH (08:29)
[2020-01-16] MEDS: SERTRALINE 50 MG TABLET PO SCH (08:30)
[2020-01-16] MEDS: SACCHAROMYCES BOULARDII 250 MG CAPSULE PO SCH (08:30)
[2020-01-16] MEDS: predniSONE 5 MG TABLET PO SCH (08:30)
[2020-01-16] MEDS: ASPIRIN CHEW 81 MG TABLET PO SCH (08:30)
[2020-01-16] MEDS: CHOLECALCIFEROL 5,000 UNIT CAPSULE PO SCH (08:30)
[2020-01-16] MEDS: HEPARIN 5,000 UNIT/ML VIAL SUBQ SCH (08:31)
--- NOTE | 2020-01-16 10:43 | Discharge Plan ---
Discharge Plan Problem Reviewed?: Yes Disposition: Home, Self Care Condition: Poor Prescriptions: Loperamide [Imodium] 2 mg PO QID PRN #15 capsule PRN Reason: Diarrhea Diet: Diabetic Activity Restrictions: Activity as Tolerated Shower Restrictions: No (fall precaution) Instruction Topics: Loperamide tablets or capsules, Dehydration, Injury Acute Kidney [facility] Concerns: dehydration, SHAYY, diarrhea Plan of Treatment: keep hydration at home, followup your licensed marine engineer very closely. you are clear mental status as your baseline on today. C.diff test is negative for your diarrhea. Imodium is prescribed for your diarrhea PRN. Care Goals: stabilization and improvement of your medical conditions Assessment: discussed with you about the care plan, you understood Additional Instructions or Follow Up instructions: you may followup your PCP in one week, followup your licensed marine engineer at next Sunday01/19/2020. I called , your licensed marine engineer, he hope see you on next Sunday. Should your symptoms return or worsen, you may present ER or call 911 for help. No Smoking: If you smoke, Please STOP! Call for help. Follow-up with: Ursula Alicea PA [Primary Care Provider] -
--- NOTE | 2020-01-16 11:12 | DISCHARGE SUMMARY ---
Discharge Summary Admit Date: 01/13/20 Discharge Date: 01/16/20 Discharging Provider: Roberto Baker Primary Care Provider: Ursula Teague Condition at Discharge: Poor Discharge Disposition: 01 Home, Self Care Discharge Facility Name: home - DIAGNOSES Admission Diagnoses: (1) Acute renal failure superimposed on stage 3 chronic kidney disease (2) Altered mental status (3) Diarrhea (4) Hyponatremia (5) Insulin dependent diabetes mellitus (6) History of renal transplant (7) STEVEN on CPAP (8) Hypertension Discharge Diagnoses with Status of Each Condition: (1) Acute renal failure superimposed on stage 3 chronic kidney disease resolved as her baseline (2) Altered mental status resolved (3) Diarrhea resolved. pt is prescribed imodium PRN (4) Hyponatremia resolved (5) Insulin dependent diabetes mellitus chronic (6) History of renal transplant chronic (7) STEVEN on CPAP chronic (8) Hypertension stable, chronic - HPI History of Present Illness: refer from 's HPI on 01/13/2020 This is a 74-year-old female with a past medical history significant for insulin-dependent diabetes, hypothyroidism, hypertension, renal transplant, chronic kidney disease, obstructive sleep apnea on CPAP who presents today from home after her daughter found her to be incontinent of stool for the past couple of days and that the patient was also soiled without her realizing. Patient reports that she was diagnosed with a urinary tract infection about 3 to 4 days ago and she was started on Augmentin. She states that she had been doing well prior to this but over the past couple days, she has felt weak, tired and noticed that she has been having diarrhea. She states it is liquid in nature and she has been having a few bowel movements each day. It does not wake her up at night. She has not noticed any blood. She has no associated abdominal pain, nausea, vomiting. She reports no prior history of stool infections to her knowledge. She has no chest pain, dyspnea, fevers, chills, dysuria, urgency. She states she has had a little bit of a nonproductive cough. She was reportedly on Augmentin for an upper respiratory tract infection as well as the UTI. She reports she normally drinks 8 to 12 glasses of water a day but these past couple of days she has had decreased oral intake and she has not been feeling well. She does report feeling thirsty. She does have a history of a kidney transplant and prior records state this happened approximately 10 years ago but the patient tells me it may have been a few years ago. She does not know why she had a transplant. She currently believes it is the month of December. She is unable to tell me the year. She initially thought she was at the hospital in [place]. Her daughter told the ER provider that the patient has had difficulty taking care of herself at home given her worsening Alzheimer's. In the emergency department, she is found to be afebrile with temperature of 36.4 C. Her heart rate was 65. Her blood pressure was 110/46. She was not tachypneic and saturating well on room air. Labs reveal a sodium of 129, chloride of 94, bicarbonate of 17, and elevated anion gap at 18. Her BUN was elevated at 107 and her creatinine at 3.3, her baseline is usually around 1.5. Glucose was also elevated at 353. Given her acute renal failure and dehydration, medicine was consulted for admission. I did ask the emergency room provider to speak with her grinder set up operator centerless (Dr. Garvin) given her history of renal transplant. Provider spoke with the on-call grinder set up operator centerless (Dr. Dunbar) who felt it is appropriate for the patient to be admitted here. They recommended checking a Prograf level in the morning before resuming. Of note, I did discuss goals of care with the patient and she would like to be a full code. - HOSPITAL COURSE Hospital Course: pt was admitted for diarrhea, weakness and AMS. after evaluation and treatment, pt has no C.diff for her diarrhea, and diarrhea was controlled. pt was found to have SHAYY, likely from dehydration and from her diarrhea. after hydration, pt's kidney function return and better than her baseline. pt's mental status return to her baseline. Dr. Feliz was called and consulted, pt's grinder set up operator centerless, clearly tell pt and give pt instruction to followup Dr. Feliz on next Sunday. The detail hospital course is as the below. (1) Acute renal failure superimposed on stage 3 chronic kidney disease resolved as her baseline (2) Altered mental status resolved (3) Diarrhea resolved. pt is prescribed imodium PRN (4) Hyponatremia resolved (5) Insulin dependent diabetes mellitus chronic (6) History of renal transplant chronic (7) STEVEN on CPAP chronic (8) Hypertension stable, chronic - ALLERGIES Allergies/Adverse Reactions: Allergies Allergy/AdvReac Type Severity Reaction Status Date / Time methadone [Methadone] Allergy Mild Hives Verified 01/13/20 23:21 propoxyphene Allergy Mild Rash Verified 01/13/20 23:21 verapamil [Verapamil] Allergy Mild Hives Verified 01/13/20 23:21 - MEDICATIONS Home Medications: Ambulatory Orders Medication Instructions Recorded Confirmed Acetaminophen [Tylenol] 650 mg PO Q4-6H PRN 03/20/13 01/13/20 Aspirin [Aspir 81] 81 mg PO DAILY 03/20/13 01/13/20 Calcium Carbonate [Tums (Calcium 500 mg PO TID 03/20/13 01/13/20 Carbonate 500mg)] Insulin Glargine [Lantus] 30 unit SUBQ BID 03/20/13 01/13/20 Multivit with Calcium,Iron,Min 1 each PO DAILY 03/20/13 01/13/20 [Essential Daily] Pravastatin Sodium [Pravachol] 20 mg PO QPM 03/20/13 01/13/20 Sertraline [Zoloft] 50 mg PO DAILY 03/20/13 01/13/20 Tacrolimus 2 mg PO BID 03/20/13 01/13/20 predniSONE [Deltasone] 5 mg PO QAM 03/20/13 01/13/20 Furosemide 20 mg PO BID 03/11/19 01/13/20 Levothyroxine [Synthroid] 25 mcg PO QDAC 03/11/19 01/13/20 Oxycodone HCl 10 mg PO BID PRN 03/11/19 01/13/20 Cholecalciferol [Vitamin D3] 5,000 unit PO DAILY 03/12/19 01/13/20 Insulin Aspart (Vial) [NovoLOG 13 unit SUBQ TID #0 03/12/19 01/13/20 (VIAL FOR ED USE)] Metoprolol Succinate 25 mg PO QPM 01/14/20 01/14/20 Loperamide [Imodium] 2 mg PO QID PRN #15 capsule 01/16/20 - PHYSICAL EXAM AT DISCHARGE General Appearance: positive: No acute distress, Alert. negative: Lethargic Eyes Bilateral: positive: Normal inspection, PERRL, No lid inflammation ENT: positive: ENT inspection nml, Pharynx nml, No signs of dehydration. negative: Purulent nasal drainage Neck: positive: Nml inspection, Thyroid nml, No JVD, Trachea midline. negative: Thyromegaly, Lymphadenopathy (R), Lymphadenopathy (L), Stiff neck, Tracheal deviation Respiratory: positive: Chest non-tender, No respiratory distress, Breath sounds nml. negative: Wheezes, Rales, Rhonchi Cardiovascular: positive: Regular rate & rhythm, No murmur, No gallop. negative: Irregularly irregular, Extrasystoles, Tachycardia, Bradycardia, JVD present, Systolic murmur, Diastolic murmur Peripheral Pulses: positive: 2+ Abdomen: positive: Non-tender, No organomegaly, Nml bowel sounds, No distention. negative: Tenderness, Guarding, Rebound Back: positive: Nml inspection. negative: CVA tenderness (R), CVA tenderness (L) Skin: positive: Color nml, No rash, Warm, Dry. negative: Cyanosis, Diaphoresis, Pallor Extremities: positive: Non-tender, Full ROM, Nml appearance. negative: Calf tenderness, Jordana's sign/cords Neurologic/Psychiatric: positive: Motor nml, Sensation nml, Mood/affect nml. negative: Weakness, Sensory loss, Facial droop, Slurred/abnml speech, Depressed mood/affect - LABS Result Diagrams: 01/16/20 04:25 01/16/20 04:25 - SEPSIS Current Stage of Sepsis: Ruled out - FOLLOW UP Follow Up: keep hydration at home, followup your grinder set up operator centerless very closely. you are clear mental status as your baseline on today. C.diff test is negative for your diarrhea. you diarrhea is controlled. Imodium is prescribed for your diarrhea PRN. you may followup your PCP in one week, followup your grinder set up operator centerless at next Sunday01/19/2020. I called , your grinder set up operator centerless, he hope see you on next Sunday. Should your symptoms return or worsen, you may present ER or call 911 for help. - TIME SPENT Time Spent in Discharge (Minutes): 30
== END 2020-01-16 12:15 | disposition home or self-care (01) | DRG 683 ==
LOC: EDUNIT# → ED 19:33 → MS2 22:48
PROVIDERS: ADMIT Internal Medicine; ATTEND Nurse Practitioner Gerontology
DX: N17.9 Acute kidney failure, unspecified (principal); I10 Essential (primary) hypertension; G47.30 Sleep apnea, unspecified; Z94.0 Kidney transplant status; E87.1 Hypo-osmolality and hyponatremia; E11.29 Type 2 diabetes mellitus with other diabetic kidney complication; N28.9 Disorder of kidney and ureter, unspecified; K52.1 Toxic gastroenteritis and colitis; E86.0 Dehydration; I12.9 Hypertensive chronic kidney disease with stage 1 through stage 4 chronic kidney disease, or unspecified chronic kidney disease; E11.22 Type 2 diabetes mellitus with diabetic chronic kidney disease; N18.3 Chronic kidney disease, stage 3 (moderate); R41.0 Disorientation, unspecified; G47.33 Obstructive sleep apnea (adult) (pediatric); E03.9 Hypothyroidism, unspecified; G30.9 Alzheimer's disease, unspecified; F02.80 Dementia in other diseases classified elsewhere, unspecified severity, without behavioral disturbance, psychotic disturbance, mood disturbance, and anxiety; E11.65 Type 2 diabetes mellitus with hyperglycemia; T45.1X5A Adverse effect of antineoplastic and immunosuppressive drugs, initial encounter; Y92.019 Unspecified place in single-family (private) house as the place of occurrence of the external cause; F32.9 Major depressive disorder, single episode, unspecified; R15.9 Full incontinence of feces; G89.29 Other chronic pain; M54.9 Dorsalgia, unspecified; Z79.82 Long term (current) use of aspirin; Z79.4 Long term (current) use of insulin; Z79.52 Long term (current) use of systemic steroids; Z79.891 Long term (current) use of opiate analgesic
CPT/HCPCS: 36415; 71046; 80048; 80076; 80197; 81001; 83605; 83735; 84100; 84443; 85025; 87493; 93005; 99283; 99285; A6250; A9270; J1815; J7120; J7512; 81003; 87086

== ENCOUNTER 2021-08-03 18:27 | Outpatient (CLI) | payer MEDICARE, OTHER, MEDICAID | END 2021-08-03 18:28 | disposition short-term general hospital (02) | LOC: EMS 18:27 | DX: R06.00 Dyspnea, unspecified (principal); R60.0 Localized edema; R41.0 Disorientation, unspecified; Z89.422 Acquired absence of other left toe(s) | CPT/HCPCS: A0425; A0429 ==

== ENCOUNTER 2021-08-19 11:38 | Outpatient (CLI) | payer MEDICARE, OTHER, MEDICAID | END 2021-08-19 11:39 | disposition short-term general hospital (02) | LOC: EMS 11:38 | PROVIDERS: ATTEND Internal Medicine | DX: R53.1 Weakness (principal); R10.9 Unspecified abdominal pain; R42 Dizziness and giddiness | CPT/HCPCS: A0425; A0427 ==